=== PATIENT | female | born 1950 | race Caucasian/White ===

== ENCOUNTER 2022-03-17 14:13 | Outpatient (CLI) | payer OTHER, SELFPAY | END 2022-03-17 14:14 | disposition home or self-care (01) | LOC: NFLDREF 14:15 | PROVIDERS: PCP Family Medicine; Visit Provider Advanced Practice Midwife | DX: N89.8 Other specified noninflammatory disorders of vagina (principal) | CPT/HCPCS: 87086; 87186 ==

== ENCOUNTER 2022-06-01 15:23 | Outpatient (CLI) | payer OTHER, SELFPAY ==
--- NOTE | 2022-06-01 15:20 | CRLHL7_ITS ---
For Patients: As a result of the Century Cures Act, medical imaging exams and procedure reports are released immediately into your electronic medical record. You may view this report before your referring provider. If you have questions, please contact your health care provider. BILATERAL SCREENING MAMMOGRAM WITH COMPUTER-AIDED DETECTION AND TOMOSYNTHESIS TECHNIQUE: CC and MLO views were obtained. These mammographic images have been obtained using full-field digital technique. These mammographic images were interpreted with the benefit of computer-aided detection. Breast Tomosynthesis was used in this interpretation. COMPARISON FILM: 05/25/21, 05/01/20, 04/29/19. FINDINGS: The breasts are almost entirely fatty IMPRESSION: There is no radiographic evidence for malignancy. ASSESSMENT: BI-RADS Category 2: Benign RECOMMENDATION: Routine screening mammogram in 1 year. A lay language report of this examination will be provided to the patient. Bhupinder Dia M.D. Diagnostic Radiologist [email or web address] JANNETH/Dictated by: Bhupinder Dia MD @ 06/02/2022 8:59:00 AM (Electronically Signed)
== END 2022-06-01 15:24 | disposition home or self-care (01) ==
LOC: MAMMO 15:25
PROVIDERS: PCP Family Medicine; Visit Provider Surgery
DX: Z12.31 Encounter for screening mammogram for malignant neoplasm of breast (principal)
CPT/HCPCS: 77063; 77067

== ENCOUNTER 2022-07-29 15:05 | Outpatient (CLI) | payer OTHER, SELFPAY ==
[2022-07-29 12:55] LABS: Albumin* 3.9 g/dL (3.3-5.0)
[2022-07-29 12:56] LABS: Chloride* 104 mmol/L (96-114); Potassium* 4.4 mmol/L (3.6-5.1); Sodium* 140 mmol/L (135-149)
[2022-07-29 12:58] LABS: Cholesterol* 213 mg/dL (90-199); Creatinine* 0.8 mg/dL (0.5-1.5); Estimated Glomerular Filt Rate 79 ml/min
[2022-07-29 12:59] LABS: Alanine Aminotransferase* 25 U/L (4-35); Alkaline Phosphatase* 76 U/L (40-150); Aspartate Amino Transferase* 25 U/L (12-35); Bilirubin Total* 0.6 mg/dL (0.1-1.5); Blood Urea Nitrogen* 25 mg/dL (7-30); Calcium* 9.6 mg/dL (8.4-10.6); Carbon Dioxide* 28 mmol/L (20-32); Glucose* 95 mg/dL (60-115); Total Protein* 6.2 g/dL (6.0-8.3); Triglycerides* 135 mg/dL (40-149)
[2022-07-29 13:00] LABS: HDL Cholesterol* 66 mg/dL (>=50); LDL Cholesterol Calculated 120 mg/dL (<100)
== END 2022-07-29 15:06 | disposition home or self-care (01) ==
PROVIDERS: PCP Family Medicine; Visit Provider Family Medicine
DX: I10 Essential (primary) hypertension (principal); E03.9 Hypothyroidism, unspecified; E66.9 Obesity, unspecified; Z13.6 Encounter for screening for cardiovascular disorders
CPT/HCPCS: 80053; 80061; 84443

== ENCOUNTER 2022-08-06 15:35 | Emergency (ER) | payer OTHER, SELFPAY ==
[2022-08-06 15:48] VITALS: BP 157/92; PULSE 83; RESP 18; TEMP 36.2; O2SAT 98; BMI 46.1
--- NOTE | 2022-08-06 16:17 | ED_ITS ---
HPI - General Adult General Chief complaint: Cough Stated complaint: Cough, Pain under left ribcage Time Seen by Provider: 08/06/22 15:54 History of Present Illness HPI narrative: This 71-year-old female comes in reporting left lateral rib pain. She has had a cough for 6 weeks that is improving recently. She was diagnosed with COVID. She has now developed some pain that is reproducible with deep breath and with coughing in the left lateral ribs. She has been seen by her primary doctor and had labs and imaging studies done. A chest x-ray was done just a few days ago with negative results. She is currently taking Levaquin despite no x-ray findings of infiltrate. She has also been taking Robitussin AC which give some benefit for her persistent cough. She feels that her symptoms would improve if she could get a better control of her cough. Her cough is usually nonproduct arianne. She does not report any fevers or shortness of breath. Related Data Home Medications Medication Instructions Recorded Confirmed apixaban 5 mg tablet (Eliquis) 5 mg PO BID 03/17/22 08/06/22 calcium carbonate-vitamin tab PO 03/17/22 08/02/22 D2-minerals tablet cholecalciferol (vitamin D3) 125 125 mcg PO .4 times weekly 03/17/22 08/06/22 mcg (5,000 unit) capsule diclofenac sodium 1 % topical gel 4 g topical QID 03/17/22 08/06/22 levothyroxine 112 mcg capsule 112 mcg PO QDAY 03/17/22 08/06/22 meloxicam 15 mg tablet 15 mg PO QDAY 03/17/22 08/06/22 multivitamin with minerals 1 tab PO ONCE 03/17/22 08/06/22 (Multiple Vitamin-Minerals tablet) omeprazole 20 mg capsule,delayed 20 mg PO QDAY 03/17/22 08/06/22 release potassium chloride 10 mEq 10 meq PO BID 03/17/22 08/06/22 tablet,extended release gabapentin 300 mg capsule 300 mg PO QHS 08/06/22 08/06/22 Previous Rx's Medication Instructions Recorded furosemide 40 mg tablet 40 mg PO QAM #90 tabs 04/19/22 lisinopril 5 mg tablet 5 mg PO QDAY #90 tabs 04/19/22 tramadol 50 mg tablet 50 mg PO QDAY PRN Pain #60 tabs 09/13/22 codeine 10 mg-guaifenesin 200 mg/5 5 - 10 ml PO Q6H PRN cough #473 mL 08/02/22 mL oral liquid levofloxacin 500 mg tablet 500 mg PO QDAY #10 tabs 08/02/22 acetaminophen 300 mg-codeine 30 mg 1 tab PO Q6H PRN pain #30 tabs 08/06/22 tablet albuterol sulfate 90 mcg/actuation 2 puff inhalation Q4-6H PRN 08/06/22 aerosol inhaler (Proventil HFA) shortness of breath or wheezing #8.5 grams Allergies Allergy/AdvReac Type Severity Reaction Status Date / Time amoxicillin Allergy Intermediate Hives Verified 08/06/22 15:51 Penicillins Allergy Intermediate Hives Verified 08/06/22 15:51 thimerosal Allergy Verified 08/06/22 15:51 Review of Systems Status of ROS: Reports: 10 or more systems reviewed and unremarkable except as noted in History and below Narrative: Constitutional: No fevers, no weight gain or loss. Eyes: No discharge. No vision changes. HENT: No congestion, no sore throat, no ear pain. Cardiovascular: No chest pain, no palpitations. Respiratory: No shortness of breath, no wheezes. Persistent dry cough. Gastrointestinal: No abdominal pain, no vomiting, no diarrhea. Genitourinary: No dysuria, no hematuria. Musculoskeletal: Normal range of motion. Left lateral rib pain that is reprod uced with deep breathing and with coughing. Skin: No rashes, no pruritis. Neurological: No dizziness, weakness, sensory change, speech change. Endo/Heme/Allergies: No bruising or bleeding. No polydipsia. Pysch: no suicidality, no anxiety, no insomnia. All other systems reviewed and are negative. PFSH PFSH Surgical History History of Status post appendectomy Status post hernia repair Status post hysterectomy with oophorectomy Status post left breast lumpectomy Status post total replacement of hip Social History Smoking Status: Never smoker Exam Narrative: Exam Narrative: Constitutional: Well-developed, well-nourished, no acute distress. HEENT: Normocephalic, atraumatic. Neck: Normal range of motion. Nontender. Supple. Heart: Regular. No murmurs. Normal rate. Intact distal pulses. Lungs: Clear to auscultation. No wheezes, rhonchi, or rales. Chest: Distinct pain is reproduced when palpating along the left lateral ribs. Abdomen: Normal bowel sounds. Nontender. No rebound tenderness. Genitalia: Deferred. Back: No midline tenderness. Normal range of motion. Extremities: Normal range of motion. No injury. Skin: Intact. No rash. Warm. No erythema or pallor. Neurologic: No altered sensation. No weakness. Alert and oriented. Psychiatric: No suicidality. No anxiety or depression. No insomnia. Nursing notes and vitals signs are reviewed. Const: Vital Signs, click to edit/add: Vital Signs - 24 hr 08/06/22 15:48 Temperature 97.1 F L Pulse Rate [Pulse Oximeter] 83 Respiratory Rate 18 Blood Pressure [Ri ght Forearm] 157/92 H Pulse Oximetry 98 Oxygen Delivery Me thod Room Air Course Vital Signs Vital signs: Initial Vital Signs Temperature 97.1 F L 08/06/22 15:48 Temperature Source Temporal Artery Scan 08/06/22 15:48 Pulse Rate 83 08/06/22 15:48 Respiratory Rate 18 08/06/22 15:48 Blood Pressure 157/92 H 08/06/22 15:48 Blood Pressure Mean 113 08/06/22 15:48 Blood Pressure Position Sitting 08/06/22 15:48 Pulse Oximetry 98 08/06/22 15:48 Oxygen Delivery Method 08/06/22 15:48 Vital Signs Temperature 97.1 F L 08/06/22 15:48 Pulse Rate 83 08/06/22 15:48 Respiratory Rate 18 08/06/22 15:48 Blood Pressure 157/92 H 08/06/22 15:48 Pulse Oximetry 98 08/06/22 15:48 Oxygen Delivery Method 08/06/22 15:48 Temperature 97.1 F L 08/06/22 15:48 Pulse Rate 83 08/06/22 15:48 Respiratory Rate 18 08/06/22 15:48 Blood Pressure 157/92 H 08/06/22 15:48 Pulse Oximetry 98 08/06/22 15:48 Oxygen Delivery Method 08/06/22 15:48 Medical Decision Making MDM Narrative Medical decision making narrative: This patient comes in with reproducible left lateral rib pain suggesting chest wall pain. Her vital signs and exam are reassuring otherwise. She is currently taking Levaquin and Robitussin AC. I did discuss lab and imaging options but these were reviewed in her previous visit and declined for repetitious studies today. She did receive a prescription for Toradol, Tylenol 3, and albuterol inhaler. Discharge Plan Discharge Clinical Impression: Acute chest wall pain, Cough Patient Disposition: Home, Self-Care Condition: Stable Additional Instructions: Take medication as prescribed. Follow up with MD or return if worsening. Prescriptions: New acetaminophen-codeine 300-30 mg tablet 1 tab PO Q6H PRN (Reason: pain) Qty: 30 0RF albuterol sulfate [Proventil HFA] 90 mcg/actuation HFA aerosol inhaler 2 puff inhalation Q4-6H PRN (Reason: shortness of breath or wheezing) Qty: 8.5 0RF No Action codeine-guaifenesin 10-200 mg/5 mL liquid 5 - 10 ml PO Q6H PRN (Reason: cough) Qty: 473 0RF levofloxacin 500 mg tablet 500 mg PO QDAY Qty: 10 0RF cholecalciferol (vitamin D3) 125 mcg (5,000 unit) capsule 125 mcg PO .4 times weekly Multiple Vitamin-Minerals Tablet 1 tab PO ONCE potassium chloride 10 mEq tablet extended release 10 meq PO BID levothyroxine 112 mcg capsule 112 mcg PO QDAY meloxicam 15 mg tablet 15 mg PO QDAY omeprazole 20 mg capsule,delayed release(DR/EC) 20 mg PO QDAY diclofenac sodium 1 % gel 4 g topical QID Rx Instructions: apply to single knee, ankle, foot; for foot includes sole/toes/top of foot calcium carb-vit D2-minerals Tablet PO Eliquis 5 mg tablet 5 mg PO BID gabapentin 300 mg capsule 300 mg PO QHS lisinopril 5 mg tablet 5 mg PO QDAY Qty: 90 0RF furosemide 40 mg tablet 40 mg PO QAM Qty: 90 0RF tramadol 50 mg tablet 50 mg PO QDAY PRN (Reason: Pain) Qty: 60 0RF Follow Up/Referrals: Ela Enrique MD [Primary Care Provider] - Stand Alone Forms: [employer] Info Instructions
[2022-08-06 16:33] VITALS: BP 124/99; PULSE 76; O2SAT 94
== END 2022-08-06 16:43 | disposition home or self-care (01) ==
LOC: ED 16:31
PROVIDERS: Emergency Provider Emergency Medicine Emergency Medical Services; PCP Family Medicine
DX: R07.81 Pleurodynia (principal); R05.9 Cough, unspecified
CPT/HCPCS: 99282; 99283; 99284

== ENCOUNTER 2022-08-07 20:00 | Emergency (ER) | payer OTHER, SELFPAY ==
[2022-08-07 20:56] VITALS: BP 128/71; PULSE 76; RESP 18; TEMP 36.7; O2SAT 99; BMI 46.1
--- NOTE | 2022-08-07 21:06 | CRLHL7_ITS ---
For Patients: As a result of the Century Cures Act, medical imaging exams and procedure reports are released immediately into your electronic medical record. You may view this report before your referring provider. If you have questions, please contact your health care provider. INDICATION: Chest pain. PE protocol. Assess for rib fractures on the left side.. TECHNIQUE: CT chest PE was acquired with 45 cc Isovue 370 IV contrast. Very poor IV access. 45 cc was best attempt. Incomplete injection per food service technician. COMPARISON: None. FINDINGS: Heart and vasculature: Contrast opacification of the pulmonary arterial tree is inadequate. Nondiagnostic study. Unable to assess for pulmonary embolism.. Heart size is normal. Thoracic aorta is normal in caliber.Main pulmonary artery is mildly dilated measuring up to 31 millimeters in diameter. Lungs and pleura: No suspicious nodules or infiltrates. No pleural effusions, pleural thickening, or pneumothorax. Lymph nodes/mediastinum: No mediastinal, hilar, or axillary adenopathy. Chest wall: No masses. Upper abdomen: No acute or significant findings. Bones: Left lateral 9th rib fracture (5/164), otherwise unremarkable for age. Other old healed fractures are noted. IMPRESSION: Nondiagnostic study for pulmonary embolism due to inadequate opacification of the pulmonary artery. Left lateral 9th rib fracture. Otherwise, no acute cardiopulmonary process identified. Please note that all CT scans at this facility use dose modulation, iterative reconstruction, and/or weight-based dosing when appropriate to reduce radiation dose to as low as reasonably achievable. Dictated by Елена Rordiguez MD @ 08/07/2022 11:52:12 PM (Electronically Signed)
--- NOTE | 2022-08-07 21:39 | ED_ITS ---
HPI - General Adult General Chief complaint: Rib Pain Stated complaint: Left rib pain Time Seen by Provider: 08/07/22 21:04 History of Present Illness HPI narrative: Pt is a 71 year old woman who was here yesterday with a complaint of left sided chest pain. The pain localizes to the mid axillary line in the lower chest wall. Pt was treated and released with symptomatic treatment yesterday but returns stating that the pain is more severe. No orthopnea, PND, nausea or vomiting. No fever or chills. No recent trauma. Pt states the area localizes to the lower ribs and does not radiate. She has no cough or bruising. Pt states the pain has been present for a few days and seems to be worsening. No other associated symptoms. Pain medications are not helping at home. Related Data Home Medications Medication Instructions Recorded Confirmed apixaban 5 mg tablet (Eliquis) 5 mg PO BID 03/17/22 08/06/22 calcium carbonate-vitamin tab PO 03/17/22 08/02/22 D2-minerals tablet cholecalciferol (vitamin D3) 125 125 mcg PO .4 times weekly 03/17/22 08/06/22 mcg (5,000 unit) capsule diclofenac sodium 1 % topical gel 4 g topical QID 03/17/22 08/06/22 levothyroxine 112 mcg capsule 112 mcg PO QDAY 03/17/22 08/06/22 meloxicam 15 mg tablet 15 mg PO QDAY 03/17/22 08/06/22 multivitamin with minerals 1 tab PO ONCE 03/17/22 08/06/22 (Multiple Vitamin-Minerals tablet) omeprazole 20 mg capsule,delayed 20 mg PO QDAY 03/17/22 08/06/22 release potassium chloride 10 mEq 10 meq PO BID 03/17/22 08/06/22 tablet,extended release gabapentin 300 mg capsule 300 mg PO QHS 08/06/22 08/06/22 Previous Rx's Medication Instructions Recorded furosemide 40 mg tablet 40 mg PO QAM #90 tabs 04/19/22 lisinopril 5 mg tablet 5 mg PO QDAY #90 tabs 04/19/22 tramadol 50 mg tablet 50 mg PO QDAY PRN Pain #60 tabs 05/31/22 codeine 10 mg-guaifenesin 200 mg/5 5 - 10 ml PO Q6H PRN cough #473 mL 08/02/22 mL oral liquid levofloxacin 500 mg tablet 500 mg PO QDAY #10 tabs 08/02/22 acetaminophen 300 mg-codeine 30 mg 1 tab PO Q6H PRN pain #30 tabs 08/06/22 tablet albuterol sulfate 90 mcg/actuation 2 puff inhalation Q4-6H PRN 08/06/22 aerosol inhaler (Proventil HFA) shortness of breath or wheezing #8.5 grams Allergies Allergy/AdvReac Type Severity Reaction Status Date / Time amoxicillin Allergy Intermediate Hives Verified 08/07/22 20:59 Penicillins Allergy Intermediate Hives Verified 08/07/22 20:59 thimerosal Allergy Verified 08/07/22 20:59 Review of Systems Status of ROS: Reports: 10 or more systems reviewed and unremarkable except as noted in History and below [facility] Medical History (Updated 08/08/22 @ 00:00 by Chris Wilhelm MD) Acute chest wall pain Atrial fibrillation COVID GERD (gastroesophageal reflux disease) Hypertension Hypothyroidism Obesity Obstructive sleep apnea on CPAP Ovarian cancer Spondylolisthesis of lumbar region Surgical History History of Status post appendectomy Status post hernia repair Status post hysterectomy with oophorectomy Status post left breast lumpectomy Status post total replacement of hip Social History Smoking Status: Never smoker How often do you have a drink containing alcohol: monthly or less How often do you have six or more drinks on one occasion: Never AUDIT-C Alcohol total score: 1 Non-prescribed substance use: denies use Exam Narrative: Exam Narrative: EXAM GENERAL: Patient appears to be moderatlely uncomfortable. EYES: No scleral icterus. THYROID: no thyroid nodules or thyromegaly. LYMPH: No supraclavicular or cervical lymphadenopathy. SKIN: Visible skin seen during exam normal or with benign process only. EXT: No dependent lower extremity pedal edema. HEART: Regular rate and rhythm with no murmurs, rubs, or gallops. Chest exam shows tenderness in the lateral left chest. LUNGS: Clear to auscultation bilaterally with no crackles or wheezes. ABD: Soft, non tender, non distended. PSYCH: Good eye contact, speech is not pressured. Const: Vital Signs, click to edit/add: Vital Signs - 24 hr 08/07/22 20:56 Temperature 98.0 F Pulse Rate [Right Pulse Oximeter] 76 Respiratory Rate 18 Blood Pressure [Le ft Upper Arm] 128/71 Pulse Oximetry 99 Oxygen Delivery Me thod Room Air Course Course Hospital Course: Pt seen and examined. CT chest, troponin, EKG, CBC, BMP ordered. Reevaluation(s) Reevaluation #1: Labs reassuring. CT nondiagnostic for PE but does show a 9th rib fracture on the left. Time: 23:54 Vital Signs Vital signs: Initial Vital Signs Temperature 98.0 F 08/07/22 20:56 Temperature Source Temporal Artery Scan 08/07/22 20:56 Pulse Rate 76 08/07/22 20:56 Respiratory Rate 18 08/07/22 20:56 Blood Pressure 128/71 08/07/22 20:56 Blood Pressure Mean 90 08/07/22 20:56 Blood Pressure Position Sitting 08/07/22 20:56 Pulse Oximetry 99 08/07/22 20:56 Oxygen Delivery Method 08/07/22 20:56 Vital Signs Temperature 98.0 F 08/07/22 20:56 Pulse Rate 76 08/07/22 20:56 Respiratory Rate 18 08/07/22 20:56 Blood Pressure 128/71 08/07/22 20:56 Pulse Oximetry 99 08/07/22 20:56 Oxygen Delivery Method 08/07/22 20:56 Temperature 98.0 F 08/07/22 20:56 Pulse Rate 76 08/07/22 20:56 Respiratory Rate 18 08/07/22 20:56 Blood Pressure 128/71 08/07/22 20:56 Pulse Oximetry 99 08/07/22 20:56 Oxygen Delivery Method 08/07/22 20:56 Medical Decision Making MDM Narrative Medical decision making narrative: Pt is a 71 year old woman who comes in for the second time in 2 days for pain in the lateral left chest wall. Pt's evaluation shows a rib fracture. Non diagn ostic study for PE not repeated as pt is on anticoagulation and has a cause for her pain. Will treat with Ice, percocet and rest. PCP follow up. Differential Diagnosis Differential Diagnosis: PE, Pneumonia, Rib Fracture, Muscle Pain, Pleurasy, DE Lab Data Labs: Lab Results 08/07/22 08/07/22 Range/Units 22:27 22:27 WBC 6.95 (4.50-11.00) K/uL RBC 4.28 (4.00-5.20) m/uL Hgb 12.9 (12.0-16.0) gm/dL Hct 39.4 (33.0-51.0) % MCV 92 (80-100) fL MCH 30 (26-34) pg MCHC 33 (32-36) gm/dL RDW Coeff of Kt 13.4 (11.5-15.5) % Plt Count 283 (140-440) K/uL Neut % (Auto) 61.4 (42.0-72.0) % Lymph % (Auto) 27.1 (20-44) % [place] % (Auto) 7.3 (0.0-11.0) % Eos % (Auto) 3.3 (0.0-7.0) % Baso % (Auto) 0.3 (0.0-3.0) % Neut # (Auto) 4.27 (1.7-7.0) K/uL Lymph # (Auto) 1.88 (0.90-2.90) K/uL [place] # (Auto) 0.50 (0.00-0.90) K/UL Eos # (Auto) 0.23 (0.00-0.50) K/uL Baso # (Auto) 0.02 (0.00-0.30) K/uL Abs Immat Gran (auto) 0.04 (0.00-0.30) K/uL Imm/Tot Granulo (auto) 0.6 % Sodium 141 (135-149) mmol/L Potassium 4.1 (3.6-5.1) mmol/L Chloride 105 (96-114) mmol/L Carbon Dioxide 30 (20-32) mmol/L BUN 23 (7-30) mg/dL Creatinine 1.0 (0.5-1.5) mg/dL Estimated Creat Clear 43.30 Estimated GFR 61 ml/min Glucose 114 (60-115) mg/dL Calcium 9.2 (8.4-10.6) mg/dL Troponin I < 0.01 L (0.01-0.04) ng/mL Discharge Plan Discharge Clinical Impression: Fracture of rib Condition: Stable Instructions: Rib Fracture (ED) Additional Instructions: Ice Percocet Primary Care follow up. Activity Level: No Restrictions Discharge Diet: Regular Prescriptions: No Action codeine-guaifenesin 10-200 mg/5 mL liquid 5 - 10 ml PO Q6H PRN (Reason: cough) Qty: 473 0RF levofloxacin 500 mg tablet 500 mg PO QDAY Qty: 10 0RF cholecalciferol (vitamin D3) 125 mcg (5,000 unit) capsule 125 mcg PO .4 times weekly Multiple Vitamin-Minerals Tablet 1 tab PO ONCE potassium chloride 10 mEq tablet extended release 10 meq PO BID levothyroxine 112 mcg capsule 112 mcg PO QDAY meloxicam 15 mg tablet 15 mg PO QDAY omeprazole 20 mg capsule,delayed release(DR/EC) 20 mg PO QDAY diclofenac sodium 1 % gel 4 g topical QID Rx Instructions: apply to single knee, ankle, foot; for foot includes sole/toes/top of foot calcium carb-vit D2-minerals Tablet PO Eliquis 5 mg tablet 5 mg PO BID gabapentin 300 mg capsule 300 mg PO QHS acetaminophen-codeine 300-30 mg tablet 1 tab PO Q6H PRN (Reason: pain) Qty: 30 0RF albuterol sulfate [Proventil HFA] 90 mcg/actuation HFA aerosol inhaler 2 puff inhalation Q4-6H PRN (Reason: shortness of breath or wheezing) Qty: 8.5 0RF lisinopril 5 mg tablet 5 mg PO QDAY Qty: 90 0RF furosemide 40 mg tablet 40 mg PO QAM Qty: 90 0RF tramadol 50 mg tablet 50 mg PO QDAY PRN (Reason: Pain) Qty: 60 0RF Follow Up/Referrals: Ela Enrique MD [Primary Care Provider] - Stand Alone Forms: [employer] Info Instructions
[2022-08-07 22:27] VITALS: O2SAT 98
[2022-08-07 22:46] LABS: Chloride* 105 mmol/L (96-114)
[2022-08-07 22:47] LABS: Potassium* 4.1 mmol/L (3.6-5.1); Sodium* 141 mmol/L (135-149)
[2022-08-07 22:49] LABS: Estimated Glomerular Filt Rate 61 ml/min
[2022-08-07 22:50] LABS: Blood Urea Nitrogen* 23 mg/dL (7-30); Calcium* 9.2 mg/dL (8.4-10.6); Carbon Dioxide* 30 mmol/L (20-32); Glucose* 114 mg/dL (60-115)
[2022-08-07 22:57] LABS: Basophils Absolute Auto 0.02 K/uL (0.00-0.30); Basophils Percent Auto 0.3 % (0.0-3.0); Eosinophils Absolute Auto 0.23 K/uL (0.00-0.50); Eosinophils Percent Auto 3.3 % (0.0-7.0); Hematocrit 39.4 % (33.0-51.0); Hemoglobin* 12.9 gm/dL (12.0-16.0); Immature Granulocytes Abs Auto 0.04 K/uL (0.00-0.30); Immature Granulocytes Pct Auto 0.6 %; Lymphocytes Absolute Auto 1.88 K/uL (0.90-2.90); Lymphocytes Percent Auto 27.1 % (20-44); Mean Corpuscular HGB Conc 33 gm/dL (32-36); Mean Corpuscular Hemoglobin 30 pg (26-34); Mean Corpuscular Volume 92 fL (80-100); Monocytes Percent Auto 7.3 % (0.0-11.0); Neutrophils Absolute Auto 4.27 K/uL (1.7-7.0); Neutrophils Percent Auto 61.4 % (42.0-72.0); Platelet Count* 283 K/uL (140-440); RDW Coefficient of Variation % 13.4 % (11.5-15.5); Red Blood Count 4.28 m/uL (4.00-5.20); White Blood Count* 6.95 K/uL (4.50-11.00)
[2022-08-07 23:01] LABS: Slide Review Reflex No
[2022-08-07 23:02] LABS: Troponin I* < 0.01 ng/mL (0.01-0.04)
[2022-08-08 00:05] VITALS: BP 132/74; PULSE 81; RESP 18; TEMP 36.9; O2SAT 99
== END 2022-08-08 00:06 | disposition home or self-care (01) ==
PROVIDERS: Emergency Provider Internal Medicine; PCP Family Medicine
DX: S22.32XA Fracture of one rib, left side, initial encounter for closed fracture (principal); X58.XXXA Exposure to other specified factors, initial encounter; Y93.9 Activity, unspecified; Y92.9 Unspecified place or not applicable; Y99.9 Unspecified external cause status
CPT/HCPCS: 36415; 71260; 80048; 84484; 85025; 93005; 94761; 99283; 99284; Q9967

== ENCOUNTER 2023-04-05 11:13 | Outpatient (CLI) | payer OTHER, SELFPAY | END 2023-04-05 11:14 | disposition home or self-care (01) | LOC: NFLDREF 04-06 07:30 | PROVIDERS: PCP Family Medicine; Referring Provider Family Medicine | DX: R53.83 Other fatigue (principal); Z79.1 Long term (current) use of non-steroidal anti-inflammatories (NSAID); I10 Essential (primary) hypertension; M79.89 Other specified soft tissue disorders; Z79.899 Other long term (current) drug therapy | CPT/HCPCS: 80053 ==

== ENCOUNTER 2023-06-06 12:48 | Outpatient (CLI) | payer OTHER, SELFPAY ==
--- NOTE | 2023-06-06 13:00 | CRLHL7_ITS ---
For Patients: As a result of the Century Cures Act, medical imaging exams and procedure reports are released immediately into your electronic medical record. You may view this report before your referring provider. If you have questions, please contact your health care provider. BILATERAL SCREENING MAMMOGRAM WITH COMPUTER-AIDED DETECTION AND TOMOSYNTHESIS TECHNIQUE: CC and MLO views were obtained. These mammographic images have been obtained using full-field digital technique. These mammographic images were interpreted with the benefit of computer-aided detection. Breast Tomosynthesis was used in this interpretation. COMPARISON FILM: 06/01/22, 05/25/21, 05/01/20. FINDINGS: The breasts are almost entirely fatty IMPRESSION: There is no radiographic evidence for malignancy. ASSESSMENT: BI-RADS Category 1: Negative RECOMMENDATION: Routine screening mammogram in 1 year. A lay language report of this examination will be provided to the patient. Bhupinder Dia M.D. Diagnostic Radiologist [email or web address] JANNETH/Dictated by: Bhupinder Dia MD @ 06/07/2023 11:38:00 AM (Electronically Signed)
== END 2023-06-06 12:49 | disposition home or self-care (01) ==
LOC: MAMMO 12:49
PROVIDERS: PCP Family Medicine; Visit Provider Physician Assistant
DX: Z12.31 Encounter for screening mammogram for malignant neoplasm of breast (principal)
CPT/HCPCS: 77063; 77067

== ENCOUNTER 2023-08-11 08:31 | Outpatient (CLI) | payer OTHER, SELFPAY ==
--- NOTE | 2023-08-11 08:45 | CRLHL7_ITS ---
For Patients: As a result of the Cures Act, medical imaging exams and procedure reports are released immediately into your electronic medical record. You may view this report before your referring provider. If you have questions, please contact your health care provider. DIGITAL DIAGNSOTIC RIGHT MAMMOGRAM USING TOMOSYNTHESIS AND COMPUTER-AIDED DETECTION RIGHT BREAST ULTRASOUND CLINICAL HISTORY: RIGHT breast lump. COMPARISON: 06/06/2023, 06/01/2022, 05/25/2021. TECHNIQUE: Digital RIGHT mammogram in two projections. Tomosynthesis and CAD utilized. Real-time ultrasound imaging of RIGHT breast with imaging documentation. BREAST COMPOSITION: There are areas of scattered fibroglandular density. FINDINGS: 3D CC/MLO RIGHT breast mammogram images submitted. No suspicious masses or architectural distortion. No adenopathy or suspicious calcifications. Targeted RIGHT breast ultrasound performed in the area of concern at 5 o`clock 8 cm from the nipple. Circumscribed near isoechoic/slightly hyperechoic nodule is present just beneath the skin measuring 0.9 x 2.8 x 2.9 cm. No abnormal vascularity. IMPRESSION: Benign lipoma RIGHT breast 5 o`clock 8 cm from the nipple. No evidence of malignancy. RECOMMENDATIONS: Routine BILATERAL screening mammography. Results and recommendations discussed with the patient. BI-RADS Category 2: Benign A lay language report of this examination will be provided to the patient. Dictated by Bhupinder Dia MD @ 08/11/2023 9:36:45 AM j/Dictated by: Bhupinder Dia MD @ 08/11/2023 9:36:00 AM (Electronically Signed)
--- NOTE | 2023-08-11 09:15 | CRLHL7_ITS ---
For Patients: As a result of the Century Cures Act, medical imaging exams and procedure reports are released immediately into your electronic medical record. You may view this report before your referring provider. If you have questions, please contact your health care provider. PLEASE SEE DIGITAL DIAGNOTIC RIGHT MAMMOGRAM PERFORMED SAME DAY CRL:[email or web address] [email or web address]/Dictated by: Bhupinder Dia MD @ 08/11/2023 10:05:00 AM (Electronically Signed)
== END 2023-08-11 08:32 | disposition home or self-care (01) ==
PROVIDERS: PCP Family Medicine; Visit Provider Radiology Radiation Oncology
DX: N63.14 Unspecified lump in the right breast, lower inner quadrant (principal)
CPT/HCPCS: 76642; 77065; G0279

== ENCOUNTER 2023-10-06 11:00 | Outpatient (CLI) | payer OTHER, SELFPAY | END 2023-10-06 11:01 | disposition home or self-care (01) | LOC: NFLDREF 10-09 11:33 | PROVIDERS: PCP Family Medicine; Referring Provider Family Medicine; Visit Provider Family Medicine | DX: E03.9 Hypothyroidism, unspecified (principal); E78.5 Hyperlipidemia, unspecified; M85.80 Other specified disorders of bone density and structure, unspecified site; Z79.1 Long term (current) use of non-steroidal anti-inflammatories (NSAID); I10 Essential (primary) hypertension | CPT/HCPCS: 80053; 80061; 82306; 84443 ==

== ENCOUNTER 2023-11-08 13:21 | Outpatient (CLI) | payer OTHER, SELFPAY ==
--- OUTSIDE RECORDS SUMMARY | 2023-11-08 13:24 | XMS_ITS | Encounter Summary ---
Author Name Unknown Organization [facility] Address [address] [place] [id number] Care Team Providers Care Tire Design Engineer Name Role Phone Unavailable Primary Care Provider Unavailabl e Encounter Details Date Type Department Care Team (Late st Contact Info) Description 08/02/2023 Clinical Communication Department of Radiation Oncology in [place], [place] [address] [place] [id number] Alena Gutierrez M.D. [address] [place] [phone] Social History Tobacco Use Types Packs/Day Years Used Date Smoking Tobacco: Never Assessed Nutrition Answer Date Recorded Nutrition: EVOO Fat Source Unknown 11/16 Nutrition: Servings of Fruits/Vegetables per Day Not on file 11/16/2020 Dental Answer Date Recorded Dental: Regular Dentist Unknown 11/17/19 Sex and Gender Information Value Date Recorded Sex Assigned at Not on file Gender Identity Not on file Sexual Orientation Not on file documented as of this encounter Miscellaneous Notes * Telephone Encounter - Art Mcgowan - 08/02/2023 2:30 PM CST Patient called and stated that she is going to have a compressed mammogram and she had heard from afriend that they are very painful. Patient is wondering if she could have a prescription for percocet to help with the pain. Patient would like a call back. [phone] SOLUTION MANAGER CONSULTANT documented in this encounter Plan of Treatment Not on file documented as of this encounter Visit Diagnoses Not on filedocumented in this encounter
--- OUTSIDE RECORDS SUMMARY | 2023-11-08 13:24 | XMS_ITS | Clinical Summary ---
Author Name Unknown Organization [facility] Address [place], [place] [address] Care Team Providers Care Waterfront Director Name Role Phone Ela Enrique MD Primary Care Provider + Allergies Active Allergy Reactions Criticality Noted Date Comments Amoxicillin Hives 11/29/2006 Thimerosal Other - Describe In Comment Field 01/28/2008 Pt. states that when she used eye drops with this preservtive in, it felt like there was gravel in her eyes. Medications Medication Sig Dispensed Refills Start Date End Date Status MULTIVITAMIN CAP daily 0 Active CPAP Autotitration cpap 4-20cm of H2O, with accessories dx780.57 1 0 02/18/2008 Active omeprazole (PRILOSEC) 20 mg Delayed-Release capsule Take 1 capsule by mouth once daily before a meal. 0 11/08/2018 Active Calcium Cmb 2-D3-Min [id number] (CITRACAL + BONE DENSITY) 300-200-13.5 mg-unit-mg tab Take 1 tablet by mouth 2 times daily. 0 11/20/2019 Active meloxicam 15 mg tablet 0 09/30/2019 Active levothyroxine (SYNTHROID) 112 mcg tablet 0 07/15/2019 Active potassium chloride (K-DUR, KLOR-CON M10) 10 mEq tabletIndications: Encounter for monitoring diuretic therapy,Hypokalemi a,PAF (paroxysmal atrial fibrillation) (HC) Take 1 tablet by mouth on days that you take furosemide 90 tablet. 3 09/07/2020 Active flecainide (TAMBOCOR) 150 mg tabletIndications: PAF (paroxysmal atrial fibrillation) (HC),Encounter for monitoring diuretic therapy,Hypokalemi a Take 1 Tablet (150 mg) by mouth every 12 hours. 180 Tablet 0 07/14/2022 Active furosemide (LASIX) 40 mg tabletIndications: PAF (paroxysmal atrial fibrillation) (HC),Encounter for monitoring diuretic therapy,Hypokalemi a Take 1 tablet by mouth as needed for lower extremity edema 90 Tablet 0 07/14/2022 Active lisinopriL (PRINIVIL; ZESTRIL) 5 mg tabletIndications: HTN (hypertension) Take 1 Tablet (5 mg) by mouth once daily. 90 Tablet 0 07/14/2022 Active apixaban (ELIQUIS) 5 mg tabletIndications: Paroxysmal atrial fibrillation (HC) Take 1 Tablet (5 mg) by mouth two times daily. 180 Tablet 0 07/14/2022 Active Active Problems Problem Noted Date Diagnosed Date Atrial fibrillation 09/02/2018 Impaired fasting glucose 02/02/2010 Ulcer of lower limb, unspecified 02/01/2010 Superficial thrombophlebitis of leg 02/02/2009 Overview: Plan hematology evaluation when off coumadin Allergy to pollen 01/13/2009 Unspecified hypothyroidism 01/13/2009 ABNORMAL STRESS ECHOCARDIOGRAM 02/26/2008 MILD LEFT VENTRICULAR HYPERTROPHY 02/26/2008 SLEEP APNEA AHI-101 01/13/2008 02/18/2008 Knee joint replacement by other means 09/20/2007 Malignant neoplasm of ovary 11/29/2006 Osteoarthrosis, unspecified whether generalized or localized, unspecified site 11/29/2006 Overview: right knee Morbid obesity with BMI of 45.0-49.9, adult Resolved Problems Problem Noted Date Diagnosed Date Resolved Date half-way (current) use of anticoagulants 02/02/2009 10/12/2009 Overview: INR goal range 2.0-3.0. Per dr beasley evaluation, only needs coumadin for 6 months. Terri Cruz M.D. 05/22/2009 2:20 PM Unspecified asthma(493.90) 01/21/2008 0 06/16/2008 Immunizations Name Administration Dates Next Due Td (Age >=7 Years) 05/23/1997 Tdap 01/13/2009 Family History Medical History Relation Name Comments Cancer Father liver Other Father emphysema, also liver cancer Hyperlipidemia Mother Other Mother emphysema Psychiatric illness Mother Cancer-breast No Family History Cancer-colon No Family History Relation Name Status Comments Father Mother Social History Tobacco Use Types Packs/Day Years Used Date Smoking Tobacco: Never Smokeless Tobacco: Never Tobacco Cessation:Counseling Given: Yes Alcohol Use Standard Drinks/Week Comments Yes 0 (1 standard drink = 0.6 oz pur e alcohol) 1x/year if that Social Connections Answer Date Recorded Frequency of Communication with Friends and Fami ly Not on file 09/18/2021 Financial Resource Strain Answer Date R ecorded Difficulty of Paying Living Expenses Not on file 09/18/2021 Difficulty of Paying Living Expenses Not on file 09/18/2021 Sex and Gender Information Value Date Recorded Sex Assigned at Not on file Gender Identity Not on file Sexual Orientation Not on file Obstetrics History Para Term AB IAB SAB Ectopic Multiple Livin g Live Births 2 2 0 0 2 Date Outcome GA Total Labor Labor/2nd/3rd Weight Sex Delivery Anes PTL Kizzy A1 A5 Name Cl in Para Para Last Filed Vital Signs Vital Sign Reading Time Taken Comments Blood Pressure 142/86 01/19/2022 9:47 AM CDT Pulse 72 01/19/2022 9:47 AM CDT Temperature 36.4 ??C (97.5 ??F) 09/03/2018 10:[address] Respiratory Rate 16 09/22/2021 1:16 PM HEEL TOP LIFT SPLITTER Oxygen Saturation 96% 01/19/2022 9:47 AM CDT Inhaled Oxygen Concentration - - Weight 126.1 kg (278 lb) 09/07/2018 2:18 PM HEEL TOP LIFT SPLITTER Height 162.6 cm (5' 4) 01/20/2021 12:51 PM CDT Body Mass Index 47.72 09/03/2018 7:00 AM HEEL TOP LIFT SPLITTER Plan of Treatment Health Maintenance Due Date Last Done Comments Hepatitis C screening for age 18-79 11/24/1969 Colonoscopy through age 75 11/24/1996 Zoster (shingles) series for age 50+ (1 of 2) 11/24/2001 Mammogram for age 45-75 07/13/2011 07/13/20 10, 08/21/2008, 08/07/2007 Lipids for age 45-75 06/11/2015 06/11/2010, 05/12/20 08 DEXA/DXA scan for age 65+ 11/24/2016 Medicare Wellness for age 65+ 11/24/2016 Pneumococcal series for age 65+ (1 of 1 - PCV) 11/24/2016 Depression screening for age 12+ 11/22/2017 11/23/19 17 BMI (ht and wt on same day) for age 18+ 03/23/2018 03/23/2017, 02/02/2017, 12/22/2016 Tetanus booster 01/13/2019 01/13/2009, 05/23/1997 COVID-19 vaccine series ( season) 2023 07/23/2021, 12/29/2020, 12/08/2020 Influenza for age 65+ 05/19/2023 Tdap Completed 01/13/2009 Advance Directives Latest Code Status on File Code Status Date Activated Date Inactivated Comments Full Code 09/03/2018 7:27 AM 09/03/2018 5:02 PM Care Teams Waterfront Director Relationship Specialty Start Date End Date Ela Enrique MD [address] [place] [id number] PCP - General Family Practice 03/23/17
--- OUTSIDE RECORDS SUMMARY | 2023-11-08 13:24 | XMS_ITS | Encounter Summary ---
Author Name Unknown Organization [facility] Address [address] [place] [address] Care Team Providers Care Automation Engineering Technician Name Role Phone Unavailable Primary Care Provider Unavailabl e Encounter Details Date Type Department Care Team (Late st Contact Info) Description 08/04/2023 Orders Only Department of Radiation Oncology in [place], [place] [address] [place] [phone] Alena Gutierrez M.D. [address] [place] [address] Social History Tobacco Use Types Packs/Day Years [...] on file documented as of this encounter Plan of Treatment Not on file documented as of this encounter Visit Diagnoses Not on filedocumented in this encounter
--- OUTSIDE RECORDS SUMMARY | 2023-11-08 13:24 | XMS_ITS | Encounter Summary ---
Author Name Unknown Organization [facility] Address [address] [place] [address] Care Team Providers Care In Flight Refueling Manager Name Role Phone Unavailable Primary Care Provider Unavailabl e Reason for Referral * Outpatient (Routine) - Authorized Specialty Diagnoses / Procedures Referred By Darnell roca Referred To Contact General Surgery Diagnoses Lump In The Right Breast Lower Inner Quadrant Alena Gutierrez M.D. [address] [place] [phone] [facility] Region Referral ID Status Reason Start Date Expiration Date Visits Requested Visits Authorized [id number] Authorized Specialty Services Required 3 08/01/2024 1 1 Scheduling Instructions Schedule with Dr. Rubi White after imaging at [facility] (spoke with Dr. White). TABLE II FARMWORKER * Outpatient (Routine) - Closed Specialty Diagnoses / Procedures Referred By Contac t Referred To Contact Radiation Oncology Alena Gutierrez M.D. [address] [place] [address] [facility] Region Referral ID Status Reason Start Date Expiration Date Visits Re quested Visits Authorized [id number] Closed 06/09/2023 06/08/2026 1 1 TABLE II FARMWORKER Reason for Visit * Outpatient (Routine) - Closed Specialty Diagnoses / Procedures Referred By Contac t Referred To Contact Radiation Oncology Alena Gutierrez M.D. [address] [place] [address] [facility] Region Referral ID Status Reason Start Date Expiration Date Visits Re quested Visits Authorized [id number] Closed 06/09/2023 06/08/2026 1 1 Encounter Details Date Type Department Care Team (Latest Contact Info) Description 08/02/2023 10:38 AM VEGETABLE II FARMWORKER - 08/02/2023 3:21 PM VEGETABLE II FARMWORKER Hospital Encounter Department of Radiation Oncology in [place], [place] [address] [place] [address] Alena Gutierrez M.D. [address] [place] [phone] Lump In Axillary Tail Of The Right Breast (Primary Dx); Lump In The Right Breast Lower Inner Quadrant Social History Tobacco Use Types Packs/Day Years Used Date Smoking Tobacco: Never Assessed Nutrition Answer Date Recorded Nutrition: EVOO Fat Source Unknown 11/16 Nutrition: Servings of Fruits/Vegetables per Day Not on file 11/16/2020 Dental Answer Date Recorded Dental: Regular Dentist Unknown 11/17/19 21 Sex and Gender Information Value Date Recorded Sex Assigned at Not on file Gender Identity Not on file Sexual Orientation Not on file documented as of this encounter Last Filed Vital Signs Vital Sign Reading Time Taken Comments Blood Pressure 126/88 08/02/2023 10:54 AM [facility] Pulse - - Temperature - - Respiratory Rate - - Oxygen Saturation - - Inhaled Oxygen Concentration - - Weight - - Height - - Body Mass Index - - documented in this encounter Medications at Time of Discharge Medication Sig Dispensed Refills Start Date End Date calcium crb,dtc-N2-nlo25-geni s 300-200-13.5 mg-unit-mg tablet Take 1 tablet by mouth. 0 cholecalciferol (VITAMIN D3) 50 mcg (2,000 Unit) tablet Take 2,000 Units by mouth daily. 0 flecainide (TAMBOCOR) 150 mg tablet Take 150 mg by mouth. 0 03/22/2019 furosemide (LASIX) 40 mg tablet Take 40 mg by mouth. 0 09/07/2018 levothyroxine (SYNTHROID, LEVOTHROID) 112 mcg tablet 0 07/15/2019 levothyroxine (SYNTHROID, LEVOTHROID) 125 mcg tablet Take 125 mcg by mouth. 0 07/17/2018 lisinopriL (PRINIVIL,ZESTRIL) 5 mg tablet Take 5 mg by mouth. Taking 15 mg qd 0 09/22/2021 losartan (COZAAR) 50 mg tablet Take 50 mg by mouth daily. 0 meloxicam (MOBIC) 15 mg tablet 0 03/22/2019 miscellaneous medical supply [facility] Autotitration cpap 4-20cm of H2O, with accessories dx780.57 0 02/18/2008 multivitamin capsule Take by mouth. 0 omeprazole (PriLOSEC) [address] capsule Take 20 mg by mouth. 0 11/08/2018 oxybutynin (DITROPAN) 5 mg tablet Take 5 mg by mouth 2 (two) times a day. 0 potassium chloride (KLOR-CON M) 10 mEq ER tablet Take 10 mEq by mouth. 0 09/07/2018 sertraline (ZOLOFT) 50 mg tablet 0 04/23/2020 warfarin (COUMADIN) 2.5 mg tablet 0 03/19/2019 oxyCODONE-acetaminoph en (Percocet) 7.5-325 mg per tabletIndications:Acu te Pain Take 2 tablets by mouth once for 1 dose Indication: Acute Pain. 2 tablet 0 08/11/2023 08/04/2023 documented as of this encounter Progress Notes * Alena Gutierrez M.D. - 08/02/2023 11:00 AM CST RADIATION ONCOLOGY FOLLOW-UP NOTE SUBJECTIVE REQUESTING PROVIDER Established patient DIAGNOSIS 1. Left breast DCIS, pTis pN0 (sn) cM0, ER positive, s/p lumpectomy and SLNBx and adjuvant radiation therapy, June 2019 CHIEF COMPLAINT/REASON FOR VISIT Mrs. 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 She received 4005 cGy in 15 fractions to the left breast which she completed on July 09, 2019. Patient is being seen today for a focused follow-up visit with concerns for a new left breast nodule that she palpated on SBE. Her oncologic history is as follows: 1. April 29, 2019: Bilateral screening mammogram demonstrated a cluster of microcalcifications with pleomorphism located within the lower inner left breast, 5 cm from the nipple. 6-10 calcificationsappeared to be present. No associated mass. Normal right breast mammogram. No adenopathy. BI-RADS 0. 2. April 29, 2019: DEXA scan demonstrated T-score of -1.9 in the left femur neck and -1.1 in the total left femur demonstrating osteopenia. 3. May 06, 2019: Diagnostic mammogram of the left breast demonstrated a heterogeneous cluster ofmicrocalcifications in the inferior medial left breast. No associated mass. BI-RADS 4B. 4. May 10, 2019: Stereotactic guided core biopsy of the left breast at the 3 o'clock position, 6cm from the nipple was performed. Pathology demonstrated ductal carcinoma in situ, comedo and micropapillary subtypes, nuclear grade 3, ER positive. Calcifications and necrosis were associated with DCIS. Negative for invasive tumor. 5. May 14, 2019: General surgery consultation with Dr. John Gillis who recommended proceeding with a bilateral breast MRI and genetic testing. Plan to proceed with wire localized lumpectomy and sentinel lymph node biopsy if there are no other areas that need attention. 6. May 15, 2019: Bilateral breast MRI demonstrated artifact the biopsy clip present at the 3 o'clock position, 5 cm from the nipple of the left breast. There was surrounding increased T2 signal related to post biopsy change. There was no associated abnormal enhancement the site of the recent biopsy or elsewhere within the breast. There was no suspicious enhancement within the right breast. Thevisualized axillary lymph nodes were unremarkable. BI-RADS 6. 7. May 23, 2019: Left breast wire localized lumpectomy and left breast sentinel lymph node excision was performed by Dr. Gillis. Pathology of the left breast demonstrated ductal carcinoma in situ, nuclear grade 3, micro papillary type with necrosis. DCIS measured 1 cm and was located 0.4 cm from the lateral margin. Atypical lobular hyperplasia was present. Negative for invasive malignancy. Estrogen receptor positive (91-100%). Negative for malignancy in two lymph nodes (0/2). pTis (DCIS) pN0 (sn). 8. June 01, 2019: [facility] diagnostic testing result demonstrated one pathogenic variant identified in MUTYH. Remainder of the 47 gene cancer panel was negative including BRCA1 and BRCA2. 9. June 11, 2019: Medical Oncology consultation with Dr. Dali Michel who reviewed the overall management plan of surgery followed by radiation followed by hormonal therapy for estrogen receptor positive DCIS. The patient was unsure about pursuing any form of treatment. 10. June 19 through July 09, 2019: She received whole breast radiation therapy with 4005 cGy in 15 fractions. 11. July 2019: Patient initiated Arimidex under the care of Dr. Michel. Patient experienced extreme hot flashes and insomnia and discontinued after 1 week. 12. August 2019: Dr. Michel prescribed Tamoxifen for patient. 13. May 01, 2020: Mammogram negative. 14. May 25, 2021: Mammogram negative. 15. June 01, 2022: Mammogram is negative for malignancy. 16. June 06, 2022: Mammogram is negative for malignancy. INTERVAL HISTORY: Since I last saw Mrs. Claribel Juarez she reports feeling a new right medial breast mass about 1 week ago. She states that she was itching the area and felt it. She is not sure how long it has been there. It does not hurt. She notes no new lumps or masses. She has no new back or bone pain. She is intentionally losing weight for a hoped future knee surgery. She states she is down50 lbs. OBJECTIVE BP 126/88 (BP Location: Right arm, Patient Position: Sitting, Cuff Size: Regular) General: Mrs. Claribel Juarez is a well-developed, well-nourished woman. she is seated in the examination room in no acute distress. ECO - asymptomatic. Cardiovascular: Heat rhythm with regular rate. Lungs: Lung rodríguez are clear to auscultation throughout. No adventitious lung sounds. Musculoskeletal: No pain to palpation along the spine. Breasts: Her breasts are symmetric. She does have a 1.5cm soft to firm nodule in the medial inferior aspect of her right breast. It is mobile. No skin erythema over the area. No other masses or nipple discharge are noted in either breast. DIAGNOSTICS: I have reviewed the available imaging, operative and pathology reports as described above and reviewed in the EMR. ASSESSMENT / PLAN #1 Left breast DCIS, pTis pN0 (sn) cM0, ER positive, s/p lumpectomy and SLNBx and adjuvant radiation therapy, June 2019 #2 New right inferior medial quadrant breast mass I reviewed the above findings with Mrs. Juarez. I do agree that there is a breast mass in her inferior medial quadrant of her right breast. I would recommend a diagnostic mammogram and ultrasound of this area. Dr. Gillis has retired. I would like to refer her to Dr. Rubi White. Mrs. Juarez gave me permission to talk to her and run her case by her. I subsequently spoke with Dr. White and she agrees with our plan. Hopefully this is a benign finding, but it certainly needs evaluation. We did discuss referral to [place] for possible excision and brachytherapy should it be malignant. She did not think this was a better option than external beam radiotherapy. Hopefully, again we don't need this, but I thought I should mention other treatment options to her given how difficult external beam radiotherapy was for her last time. Mrs. Claribel Juarez knows to contact us at any point should any questions or concerns arise. EDUCATION Ready to learn, no apparent learning barriers were identified; learning preferences include listening. Explained diagnosis and treatment plan; patient expressed understanding of the content. I personally spent 30 minutes in care of the patient today. Time includes both non face to face andface to face patient care. Signed by: Alena Gutierrez M.D. 08/02/2023 3:20 PM VEGETABLE II FARMWORKER Radiation Oncology [facility] [address] [place] [address] TABLE II FARMWORKER documented in this encounter Miscellaneous Notes * Addendum Note - Alena Gutierrez M.D. - 08/02/2023 11:00 AM CSTEncounter addended by: Alena Gutierrez M.D. on: 08/03/2023 10:19 AM Actions taken: Actions taken from a BestPractice Advisory, Order list changed TABLE II FARMWORKER documented in this encounter Plan of Treatment Scheduled Referrals Name Type Priority Associated Diagnoses Order Schedule Radiation Oncology office visit (clinic) Outpatient Referral Routine Once for 1 Occurrences starting 08/02/2023 until 08/02/2023 General Surgery - General consult (clinic) Outpatient Referral Routine Lump In The Right Breast Lower Inner Quadrant Expected: 08/09/2023 (Approximate), Expires: 11/02/2024 documented as of this encounter Visit Diagnoses Diagnosis Lump In Axillary Tail Of The Right Breast- Primary Lump In The Right Breast Lower Inner Quadrant documented in this encounter
--- OUTSIDE RECORDS SUMMARY | 2023-11-08 13:24 | XMS_ITS | Encounter Summary ---
Author Name Unknown Organization [facility] Address [address] [place] [address] Care Team Providers Care Manager Distribution Name Role Phone Unavailable Primary Care Provider Unavailabl e Reason for Referral * Outpatient (Routine) - Closed Specialty Diagnoses / Procedures Referred By Funmiac t Referred To Contact Radiation Oncology Geno Becerril P.A.-C., M.S. [address] [place] [phone] [facility] Region Referral ID Status Reason Start Date Expiration Date Visits Re quested Visits Authorized [id number] Closed 12/05/2022 12/04/2025 1 1 Scheduling Instructions Mammogram prior at [facility]. Please get report and images. * Outpatient (Routine) - Closed Specialty Diagnoses / Procedures Referred By Contac t Referred To Contact Radiation Oncology Alena Gutierrez M.D. 200 [place] [address] [facility] Region Referral ID Status Reason Start Date Expiration Date Visits Re quested Visits Authorized [id number] Closed 06/06/2022 06/05/2025 1 1 Reason for Visit * Outpatient (Routine) - Closed Specialty Diagnoses / Procedures Referred By Contac t Referred To Contact Radiation Oncology Alena Gutierrez M.D. 200 [place] [address] [facility] Region Referral ID Status Reason Start Date Expiration Date Visits Re quested Visits Authorized [id number] Closed 06/06/2022 06/05/2025 1 1 Encounter Details Date Type Department Care Team (Latest Contact Info) Description 12/05/2022 2:18 PM CDT - 12/05/2022 5:25 PM CDT Hospital Encounter Department of Radiation Oncology in [place], [place] [address] [place] [phone] Alena Gutierrez M.D. 200 [place] [address] Intraductal Carcinoma In Situ Of Left Breast (Primary Dx) Social History Tobacco Use Types Packs/Day Years [...] Sign Reading Time Taken Comments Blood Pressure - - Pulse - - Temperature 36.4 ??C (97.5 ??F) 12/05/2022 2:24 PM CD T Respiratory Rate - - Oxygen Saturation - - Inhaled Oxygen Concentration - - Weight - - Height - - Body Mass Index - - documented in this encounter Medications at Time of Discharge Medication Sig Dispensed Refills Start Date End Date calcium crb,gik-N4-mvd64-genis 300-200-13.5 mg-unit-mg tablet Take 1 tablet by [...] mouth. Taking 15 mg qd 0 09/22/2021 meloxicam (MOBIC) 15 mg tablet 0 03/22/2019 miscellaneous medical supply misc Autotitration cpap 4-20cm of H2O, with accessories [...] warfarin (COUMADIN) 2.5 mg tablet 0 03/19/2019 documented as of this encounter Progress Notes * Geno Becerril P.A.-C., M.S. - 12/05/2022 2:30 PM CDT SUBJECTIVE DIAGNOSIS 1. Intraductal Carcinoma In Situ Of Left Breast SUPERVISED BY: Alena Gutierrez M.D. HISTORY OF PRESENT ILLNESS Mrs. 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 She received 4005 cGy in 15 fractions to the left breast which she completed on July 09, 2019. Her oncologic history is as follows: 1. [...] (DCIS) pN0 (sn). 8. June 01, 2019: [employer] diagnostic testing result demonstrated one pathogenic variant [...] 01, 2022: Mammogram is negative for malignancy. INTERVAL HISTORY The patient was seen and examined today with Dr. Gutierrez. The patient reports doing well overall. She reports performing self breast exams. She denies any palpable lumps or bumps in the breasts. She denies any nipple discharge or bleeding. She denies left arm range of motion limitations or swelling. She has stable shortness of breath. She denies cough. She reports that her activity is limited due to her left knee. REVIEW OF SYSTEMS Review of systems was negative except as documented above. OBJECTIVE Temp 36.4 ??C PHYSICAL EXAM GENERAL: Alert and oriented in no apparent distress. ASSESSMENT / PLAN #1 Left breast DCIS, pTis pN0 (sn) cM0, ER positive, s/p lumpectomy and SLNBx and adjuvant radiation therapy, June 2019 The patient was seen today for follow-up of DCIS. She did not report any breast concerns today. Physical examination was performed by Dr. Gutierrez, please see her attestation for details. We will orderfor her annual mammogram to be done at [facility] in May 2023. I will also order fora return visit to be scheduled here after the imaging. The patient will contact us sooner with quest ions or concerns. She verbally expressed her understanding of the plan. EDUCATION Ready to learn, no apparent learning barriers were identified; learning preferences include listening. Explained diagnosis and treatment plan; patient expressed understanding of the content. I personally spent 25 minutes in care of the patient today. Time includes both non face to face andface to face patient care. Signed by: Geno Becerril P.A.-C., M.S. 12/05/2022 3:01 PM CDT [facility] [address] [place] [address] Associated attestation - Alena Gutierrez M.D. - 12/05/2022 5:24 PM CDT I saw and evaluated the patient and participated in the nelson portions of the service. I reviewed thedocumentation of Ms. Geno Becerril PA-C, MS and agree with the findings and plan. On exam, she appearswell. No lymphadenopathy in the cervical, supra/infraclavicular or axillary regions. Breast exam was performed. She has large breasts without lumps, masses, skin changes or nipple discharge. Heart- Regular rate and rhythm. Lungs - No dullness to percussion and clear to auscultation. She will returnin 6 months with her mammogram. Her questions were answered; she was comfortable with this plan. Alena Gutierrez M.D., 12/05/2022 documented in this encounter Plan of Treatment Scheduled Referrals Name Type Priority Associated Diagnoses Order Schedule Radiation Oncology office visit (clinic) Outpatient Referral Routine Once for 1 Occurrences starting 12/05/2022 until 12/05/2022 Radiation Oncology office visit (clinic) Outpatient Referral Routine Expected: (Approximate), Expires: 12/06/2023 documented as of this encounter Visit Diagnoses Diagnosis Intraductal Carcinoma In Situ Of Left Breast- Primary documented in this encounter
--- OUTSIDE RECORDS SUMMARY | 2023-11-08 13:24 | XMS_ITS | Encounter Summary ---
Author Name Unknown Organization [facility] Address [address] [place] [address] Care Team Providers Care Forming Tube Selector Name Role Phone Unavailable Primary Care Provider Unavailabl e Encounter Details Date Type Department Care Team (Late st Contact Info) Description 03/22/2023 Clinical Communication Department of Radiation Oncology in [place], [place] [address] [place] [address] Alena Gutierrez M.D. [address] [place] [address] Social History Tobacco Use Types Packs/Day Years [...]
--- OUTSIDE RECORDS SUMMARY | 2023-11-08 13:24 | XMS_ITS ---
Author Name Unknown Organization [facility] Address [address] [place] [address] Care Team Providers Care Landing Signal Officer Name Role Phone Unavailable Primary Care Provider Unavailabl e Active Problems Problem Noted Date Diagnosed Date Intraductal Carcinoma In Situ Of Left Breast Cancer Staging:Clinical: Unsigned Pathologic stage from 06/14/2019:Stage 0(pTis (DCIS), pN0(sn), cM0, G3, ER+, [place]: Not Assessed, HER2: Not Assessed) - Signed by Alena Gutierrez M.D. on 06/14/2019 Current Oncology Plans No current plan information found. Past Plans No past plan information found. Radiation Treatments * Plan Last Treated On Elapsed Days Fractions Treated Prescribed Fraction Dose Prescribed Total Dose F1_Lt Breast 07/09/2019 20 15 of 15 267 cGy 4,005 cGy Reference Point Last Treated On Elapsed Days Session Dose Total Dose [id number] 07/09/2019 20 267 cGy 4,005 cGy
--- OUTSIDE RECORDS SUMMARY | 2023-11-08 13:24 | XMS_ITS | Continuity of Care Document ---
Author Name Unknown Organization [facility] Address [address] [place] [address] Phone Care Team Providers Care Commercial Account Manager Name Role Phone Lucy Leung MD Unavailable Unavailable Medications Medication Instructions Dosage Effective Dates (start - stop) Status Comments DURLAZA (unknown strength) Not Available - Active CALCIUM (unknown strength) Not Available - Active CONTRAVE (unknown strength) Not Available - Active NEURONTIN (unknown strength) Not Available - Active TIROSINT (unknown strength) Not Available - Active MELOXICAM (unknown strength) Not Available - Active ZANTAC (unknown strength) Not Available - Active FISH OIL (unknown strength) Not Available - Active MELATONIN (unknown strength) Not Available - Active Procedures Procedure Date Office/Outpatient Visit,[facility] 2016 Advance Directives Directive Yes / No Effective Date File Name No Information Encounters Encounter Description Practice Location Reason(s) For Visit Diagnoses Date Provider Providers Copied on Encounter Office/Outpati ent Visit,[facility] , [address], [place], [place], [id number], [place] tel:[phone] [facility] Other spondylosis , lumbar region Madhu Ayala. [facility], [address], [place], [place], [id number], [place]. tel:[phone] Referring Provider: Peter Molina, [place] [facility] [address], [place], [address]. tel:[phone] Family History Family Member Type Diagnosis Age At Onset Problem (finding) Problem (finding) Payers Payer name Insurance type Covered constitution party ID Alberto chappell(ivy) [facility] [id number] Medicare Igor ZAMORA [id number] 1 Social History Type Description Quantity Date Captured Comments Alcohol Use Details Caffeine Use Details Tobacco Use Status Never smoked tobacco 2016 Smoking Status Never smoker Non-Smoking Tobacco Use Details : No Details Available : No Details Available Sex Female Vital Signs Date / Time: Height Weight BMI Pulse Rate Blood Pressure Temperature Respiratory Rate Body Surface Area Head Circumference Head Circ. Percentile Wt./Tre. Percentile BMI percentile Pulse Ox Inhaled Ox 2:55 PM 63.00 in 111.130 kg (245.00 lbs) 43.4 0 kg/m eter (2) Chief Complaint And Reason For Visit No Information Reason For Referral Reason For Referral No Information History Of Present Illness Encounter Date Complaint History Of Prese nt Illness No Information Functional Status Date Functional Assessmen t No Information Instructions Date Instruction Additional Infor mation Weight Management Education Rela jose to Overweight Weight management: I nstructed to return to General Practitioner timeframe: 1 Month. Related to Overweight Assessments Type Assessment Date assessment Other spondylosis, lumbar region Patient Care Teams Name Effective Dates (start - stop) Status Members No Information
--- OUTSIDE RECORDS SUMMARY | 2023-11-08 13:24 | XMS_ITS | Clinical Summary ---
Author Name Unknown Organization [facility] Address [address] [place] [address] Care Team Providers Care Modular Set Crew Member Name Role Phone Unavailable Primary Care Provider Unavailabl e Source Comments Patient records contain information from all sites at [facility]. For routine questions regarding patient records, call [phone] during business hours, M-F 8:00 AM - 5:00 PM Central Time. Record requests for emergency care only can be directed to [phone] at any time.[facility] Allergies Active Allergy Reactions Criticality Noted Date Comments Amoxicillin Hives (Reselect Reaction),Rash High 07/08/2005 Thimerosal Other (see comments) Medium 01/28/2008 Pt. states that when she used eye drops with this preservtive in, it felt like there was gravel in her eyes. Medications Medication Sig Dispensed Refills Start Date End Date Status calcium crb,szc-M1-smw08-ge nis 300-200-13.5 mg-unit-mg tablet Take 1 tablet by mouth. 0 Active flecainide (TAMBOCOR) 150 mg tablet Take 150 mg by mouth. 0 03/22/2019 Act arianne furosemide (LASIX) 40 mg tablet Take 40 mg by mouth. 0 09/07/2018 Ac tive levothyroxine (SYNTHROID, LEVOTHROID) 125 mcg tablet Take 125 mcg by mouth. 0 07/17/2018 Active miscellaneous medical supply misc Autotitration cpap 4-20cm of H2O, with accessories dx780.57 0 02/18/2008 Active multivitamin capsule Take by mouth. 0 Active meloxicam (MOBIC) 15 mg tablet 0 03/22/2019 Active omeprazole (PriLOSEC) [address] capsule Take 20 mg by mouth. 0 11/08/2018 Acti ve potassium chloride (KLOR-CON M) 10 mEq ER tablet Take 10 mEq by mouth. 0 09/07/2018 Act arianne warfarin (COUMADIN) 2.5 mg tablet 0 03/19/2019 Active cholecalciferol (VITAMIN D3) 50 mcg (2,000 Unit) tablet Take 2,000 Units by mouth daily. 0 Active levothyroxine (SYNTHROID, LEVOTHROID) 112 mcg tablet 0 07/15/2019 Active sertraline (ZOLOFT) 50 mg tablet 0 04/23/2020 Active oxybutynin (DITROPAN) 5 mg tablet Take 5 mg by mouth 2 (two) times a day. 0 Active lisinopriL (PRINIVIL,ZESTRIL) 5 mg tablet Take 5 mg by mouth. Taking 15 mg qd 0 09/22/2021 Active losartan (COZAAR) 50 mg tablet Take 50 mg by mouth daily. 0 Active Active Problems Problem Noted Date Diagnosed Date Intraductal Carcinoma In Situ Of Left Breast Cancer Staging:Clinical: Unsigned Pathologic stage from 06/14/2019:Stage 0(pTis (DCIS), pN0(sn), cM0, G3, ER+, [place]: Not Assessed, HER2: Not Assessed) - Signed by Alena Gutierrez M.D. on 06/14/2019 Social History Tobacco Use Types Packs/Day Years [...] on file Sexual Orientation Not on file Last Filed Vital Signs Vital Sign Reading Time Taken Comments Blood Pressure 126/88 08/02/2023 10:54 AM EVALUATOR TRANSFER STUDENTS Pulse 69 10/03/2019 3:47 PM EVALUATOR TRANSFER STUDENTS Temperature 36.4 ??C (97.5 ??F) 12/05/2022 2:24 PM CD T Respiratory Rate 20 07/22/2019 4:15 PM EVALUATOR TRANSFER STUDENTS Oxygen Saturation 100% 07/22/2019 4:15 PM EVALUATOR TRANSFER STUDENTS Inhaled Oxygen Concentration - - Weight 135 kg (296 lb 11.8 oz) 06/14/2019 9:51 A M CDT Height 158 cm (5' 2.21) 06/14/2019 9:51 AM CDT Body Mass Index 53.92 06/14/2019 9:51 AM CDT Plan of Treatment Health Maintenance Due Date Last Done Comments Bone Density Scan (Osteoporo sis Screen) 1951 CT Colonography 1950 Cologuard 1950 Colonoscopy 1950 Colorectal Cancer Screening 1950 FIT 1950 Fasting Glucose for Diabetes Screening 1950 Hepatitis C Screening 1950 Sodium Level 1951 Thyroid Stimulating Hormone (TSH) test for thyroid function 1950 Creatinine Level (Kidney Fun ction Test) 09/03/2019 09/03/2018 Potassium Level 09/03/2019 09/03/2018 COVID-19 Vaccine (5 - 2022-2 4 season) 2023 01/21/2022, 07/23/2021, 12/29/2020, Additional history exists Influenza Vaccine (#1) 2023 10/05/2022, 2018 Depression Screening (Annual PHQ-2) 09/18/2023 Fall Risk Screen (Annual) 09/18/2023 Zoster Vaccines (2 of 2) 12/05/2023 10/10/2023 Mammogram 06/06/2024 06/06/2023, 05/19, 05/25/2021, Additional history exists DTaP,Tdap,and Td Vaccines (3 - Td or Tdap) 04/12/2029 04/12/2019, 01/13/2009 Pneumococcal vaccine (65+ years) Completed 10/05/19 23 Procedures Procedure Name Priority Date/Time Associated Diagnosis Comments OUTSIDE US BREAST Routine 08/11/2023 9:1 0 AM EVALUATOR TRANSFER STUDENTS from Last 3 Months Results * US breast RT limited-Outside US Breast (08/11/2023 9:10 AM EVALUATOR TRANSFER STUDENTS) Narrative IIMS - 08/11/2023 2:03 PM EVALUATOR TRANSFER STUDENTS This order has been created and auto-finalized to support the import of outside images. If available, original interpretation can be found on the Media Tab in Chart Review, in Document Viewer, or as an image in QREADS. If a re-interpretation or overread is required please follow defined workflow. ?? Provider Not In System IMG BI PROCEDURES [facility] NA from Last 3 Months
--- OUTSIDE RECORDS SUMMARY | 2023-11-08 13:24 | XMS_ITS ---
Author Name Unknown Organization [facility] Address [address] [place] [address] Care Team Providers Care Driver Sales Name Role Phone Unavailable Unavailable Unavailable Surgery Details Not on file Complications Check Surgery Details section. Procedure Estimated Blood Loss Check Surgery Details section. Procedure Findings Check Surgery Details section. Procedure Specimens Taken Check Surgery Details section.
--- OUTSIDE RECORDS SUMMARY | 2023-11-08 13:24 | XMS_ITS | Encounter Summary ---
Author Name Unknown Organization [facility] Address [address] [place] [address] Care Team Providers Care Sales Project Engineer Name Role Phone Unavailable Primary Care Provider Unavailabl e Encounter Details Date Type Department Care Team (Late st Contact Info) Description 08/07/2023 Orders Only Department of Radiation Oncology in [place], [place] [address] [place] [phone] Alena Gutierrez M.D. [address] [place] [address] Social History Tobacco Use Types Packs/Day Years [...]
--- OUTSIDE RECORDS SUMMARY | 2023-11-08 13:24 | XMS_ITS | Encounter Summary ---
Author Name Unknown Organization [facility] Address [address] [place] [address] Care Team Providers Care Lamination Spinner Name Role Phone Unavailable Primary Care Provider Unavailabl e Reason for Referral * Outpatient (Routine) - Closed Specialty Diagnoses / Procedures Referred By Contac t Referred To Contact Radiation Oncology Alena Gutierrez M.D. [address] [place] [phone] [facility] Referral ID Status Reason Start Date Expiration Date Visits Re quested Visits Authorized [id number] Closed 06/09/2023 06/08/2026 1 1 * Outpatient (Routine) - Closed Specialty Diagnoses / Procedures Referred By Contac t Referred To Contact Radiation Oncology Geno Becerril P.A.-C., M.S. [address] [place] [phone] [facility] Region Referral ID Status Reason Start Date Expiration Date Visits Re quested Visits Authorized [id number] Closed 12/05/2022 12/04/2025 1 1 Scheduling Instructions Mammogram prior at [facility]. Please get report and images. Reason for Visit * Outpatient (Routine) - Closed Specialty Diagnoses / Procedures Referred By Contac t Referred To Contact Radiation Oncology Geno eBcerril P.A.-C., M.S. [address] [place] [address] [facility] Region Referral ID Status Reason Start Date Expiration Date Visits Re quested Visits Authorized [id number] Closed 12/05/2022 12/04/2025 1 1 Encounter Details Date Type Department Care Team (Latest Contact Info) Description 06/09/2023 10:32 AM CDT - 06/09/2023 12:29 PM CDT Hospital Encounter Department of Radiation Oncology in [place], [place] [address] [place] [phone] Alena Gutierrez M.D. [address] [place] [phone] Intraductal Carcinoma In Situ Of Left Breast [...] on file documented as of this encounter Medications at Time of Discharge Medication Sig Dispensed Refills Start Date End Date calcium crb,rug-W6-hdg39-genis 300-200-13.5 mg-unit-mg tablet Take 1 tablet by [...] Progress Notes * Alena Gutierrez M.D. - 06/09/2023 11:00 AM CDT RADIATION ONCOLOGY FOLLOW-UP NOTE SUBJECTIVE REQUESTING PROVIDER [...] being seen today for a focused follow-up visit. Her oncologic history is as follows: 1. [...] (DCIS) pN0 (sn). 8. June 01, 2019: [employer] diagnostic testing result demonstrated one pathogenic variant [...] last saw Mrs. Claribel Juarez she reports intentionally losing 40 lbs since January as she is hoping for a knee replacement surgery. She has no breast concerns. She denies lumps, masses, nipple discharge or concerns. OBJECTIVE There were no vitals taken for this visit except for her temperature which was 97.1. General: Mrs. Claribel Juarez is a well-developed, well-nourished woman. she is seated in the examination room in no acute distress. ECO - asymptomatic. She defers breast exam when she has had her mammogram. DIAGNOSTICS: I have reviewed the available imaging, operative and pathology reports as described above and reviewed in the EMR. ASSESSMENT / PLAN #1 Left breast DCIS, pTis pN0 (sn) cM0, ER positive, s/p lumpectomy and SLNBx and adjuvant radiation therapy, June 2019 She deferred a clinical exam today given her negative breast mammogram. She is extremely uncomfortable with clinical exams. We will see Mrs. Claribel Juarez in follow-up visit in 6 months with no imaging preceding. She knows that I will do an exam at our next visit. Mrs. Claribel Juarez knows to contact us at any point should any questions or concerns arise. Mrs. Claribel Juarez knows to contact us at any point should any questions or concerns arise. EDUCATION Ready to learn, no apparent learning barriers were identified; learning preferences include listening. Explained diagnosis and treatment plan; patient expressed understanding of the content. I personally spent 15 minutes in care of the patient today. Time includes both non face to face andface to face patient care. Signed by: Alena Gutierrez M.D. 06/09/2023 12:29 PM CD[address] Radiation Oncology [facility] [address] [place] [address] documented in this encounter Plan of Treatment Scheduled Referrals Name Type Priority Associated Diagnoses Order Schedule Radiation Oncology office visit (clinic) Outpatient Referral Routine Once for 1 Occurrences starting 06/09/2023 until 06/09/2023 Radiation Oncology office visit (clinic) Outpatient Referral Routine Expected: (Approximate), Expires: 06/09/2024 documented as of this encounter Visit Diagnoses Diagnosis Intraductal Carcinoma In Situ Of Left Breast- Primary documented in this encounter
--- OUTSIDE RECORDS SUMMARY | 2023-11-08 13:24 | XMS_ITS | Referral Summary ---
Author Name Unknown Organization [facility] Address [address] [place] [address] Care Team Providers Care Lead Project Engineer Name Role Phone Unavailable Primary Care Provider Unavailabl e Source Comments Patient records contain information from all sites at [facility]. For routine questions regarding patient records, call [phone] during business hours, M-F 8:00 AM - 5:00 PM Central Time. Record requests for emergency care only can be directed to [phone] at any time.[facility] Allergies Active Allergy Reactions Criticality Noted Date Comments Amoxicillin Hives (Reselect Reaction),Rash High 07/08/2005 Thimerosal Other (see comments) Medium 01/28/2008 Pt. states that when she used eye drops with this preservtive in, it felt like there was gravel in her eyes. Medications Medication Sig Dispensed Refills Start Date End Date Status calcium crb,het-G7-byc28-ge nis 300-200-13.5 mg-unit-mg tablet Take 1 tablet [...] 06/14/2019:Stage 0(pTis (DCIS), pN0(sn), cM0, G3, ER+, [place]: Not Assessed, HER2: Not Assessed) - Signed [...] Comments Blood Pressure 126/88 08/02/2023 10:54 AM CHILD CAREGIVER Pulse 69 10/03/2019 3:47 PM CHILD CAREGIVER Temperature 36.4 ??C (97.5 ??F) 12/05/2022 2:24 PM CD T Respiratory Rate 20 07/22/2019 4:15 PM CHILD CAREGIVER Oxygen Saturation 100% 07/22/2019 4:15 PM CHILD CAREGIVER Inhaled Oxygen Concentration - - Weight 135 kg (296 lb 11.8 oz) 06/14/2019 9:51 A M CDT Height 158 cm (5' 2.21) 06/14/2019 9:51 AM CDT Body Mass Index 53.92 06/14/2019 9:51 AM CDT Plan of Treatment Not on file Procedures Procedure Name Priority Date/Time Associated Diagnosis Comments OUTSIDE US BREAST Routine 08/11/2023 9:1 0 AM CHILD CAREGIVER from Last 3 Months Results * US breast RT limited-Outside US Breast (08/11/2023 9:10 AM CHILD CAREGIVER) Narrative IIMS - 08/11/2023 2:03 PM CHILD CAREGIVER This order has been created and auto-finalized [...]
--- OUTSIDE RECORDS SUMMARY | 2023-11-08 13:24 | XMS_ITS | Continuity of Care Document ---
Author Name [facility] Organization [facility] Care Team Providers Care Patient Case Coordinator Name Role Phone [facility] Unavailable Unavailable Problems Combined list of problems from Department of Defense and [facility] facilities. It does not include entries that were removed or entered in error. Problem Status Onset Date Problem Type Date of Resolution Comments Source Diagnosis: ICD-10-CM Z65.9 Problem related to unspecified psychosocial circumstances Active Diagnosis [facility] Encounters Combined list of: 1) Encounters from Department of Veterans Affairs facilities going back up to thelast 18 months. 2) Encounters from the Department of [facility] facilities going back up to 280 months. Location Location Details Encounter Type Encounter Number Reason For Visit Attending Provider ADM Date DC Date Status Disposition Source [facility] Outpatient Encounter [id number] 10/20 [facility] Outpatient Encounter [id number] 10/21 [facility] PSYCH DIAGNOSTIC EVALUATION [id number] Diagnos is: ICD-10- CM Z65.9 Problem related to unspeci fied psychos ocial circums tances< br/> CONRAD HOWE SA 11/01 [facility] [place] Outpatient Encounter [id number] Edelmira REINOSO 11/17 [facility]
--- OUTSIDE RECORDS SUMMARY | 2023-11-08 13:24 | XMS_ITS | Encounter Summary ---
Author Name Unknown Organization [facility] Address [address] [place] [address] Care Team Providers Care Media Center Assistant Name Role Phone Unavailable Primary Care Provider Unavailabl e Encounter Details Date Type Department Care Team (Late st Contact Info) Description 06/08/2023 Clinical Communication Department of Radiation Oncology in [place], [place] [address] [place] [phone] Alena Gutierrez M.D. [address] [place] [phone] Social History Tobacco Use Types Packs/Day Years [...] encounter Miscellaneous Notes * Telephone Encounter - Fanny Santos APRN, C.N.P., D.N.P. - 06/08/2023 3:07 PM CDT I contacted the patient to inform her of her mammogram results which were negative for any evidenceof malignancy. She had already heard back from [facility] with those results and was very relieved. I reviewed with her our follow-up plans to see her tomorrow in clinic. She verbalized under standing and agreement to the plan. * Telephone Encounter - Art Mcgowan - 06/08/2023 2:38 PM CDT Patient Requests to Speak to a Specific Provider Reason for call: Upcoming Appointment: 06/09 @ 11:00AM Radiation treatment details: The patient has not received radiation treatment. Patient called asking to speak with Dr. Gutierrez as [facility] called and her answered and asked them to call back so they could speak to the patient. The patient stated that it has been some time since then and she is worried that it is about her mammogram results and that it is bad news. I reassured her that Dr. Gutierrez would go over her results with her tomorrow at her appointment and she sharedthat that is a long time to wait so she asked that Dr. Gutierrez call her with the results sooner if possible. # [phone]. documented in this encounter Plan of Treatment Not on file documented as of this encounter Visit Diagnoses Not on filedocumented in this encounter
--- NOTE | 2023-11-08 13:30 | XR_ITS ---
Patient: ARLYN TOVAR Facility:?[facility] Patient ID:?[id number] Site Patient ID:?[id number]. Site :?[id number] Study:?DEXA-Bone Density DEXA - SPINE/HIP/FOREARM-11/08/2023 2:00:31 PM Ordering Physician:OSCAR Final Report: DXA BONE MINERAL DENSITY STUDY Reason for exam: Osteopenia. Current height (inches): 65.5 Weight (lbs.): 140.0 Menopause age: 44 Ethnicity: White 1. Have you had a previous hip or vertebral fracture? No. 2. Have you had any fractures during your adult life which did not result from significant trauma (e.g., auto accident)? No. 3. Did either of your parents have a hip fracture? No. 4. Do you smoke? No. 5. Have you ever taken Glucocorticoids? No. 6. Do you have rheumatoid arthritis? No. 7. Do you have secondary osteoporosis? No. 8. Do you drink 3 or more alcoholic drinks per day? No. 9. Are you being treated for osteoporosis? Yes. 10. Have you ever taken any of the following medications: Actonel, Evista, Fosamax, Miacalcin, Reclast, Boniva, Forteo, HRT (i.e., estrogen/hormone therapy), Protelos, Prolia, Vitamin D, Calcium, other ? please specify. ANSWER: Yes; Fosamax, vitamin D, calcium. 11. Do you have any of the following medical conditions: Anorexia or bulimia, asthma or emphysema, end stage renal disease, hyperparathyroidism, any seizure disorders, cancer, inflammatory bowel diseases, hysterectomy, other ? please specify. ANSWER: No. 12. What was your maximum height (inches)? 66. 13. Do you perform weightbearing exercise regularly? No. 14. Do you regularly consume dairy products? Yes. 15. Do you drink caffeinated beverages? Yes. 16. At what age did your period start? 89. 17. Are you premenopausal? No. 18. How many full-term pregnancies have you had? 1. 19. Have you ever missed your period for more than 6 months in a row (not including or menopause)? No. TECHNIQUE: Bone mineral density study was performed using the GoPro. FINDINGS: The results of the study expressed as bone mineral density (BMD) are as follows: Lumbar Spine L1 to L3 BMD: 0.900 g/cm2. T-score: -1.1. Z-score: 1.4. Neck Left: BMD: 0.777 g/cm2. T-score: -0.7. Z-score: 1.5. Right: BMD: 0.757 g/cm2. T-score: -0.8. Z-score: 1.3. Total Left: BMD: 0.968 g/cm2. T-score: 0.2. Z-score: 2.1. Right: BMD: 0.979 g/cm2. T-score: 0.3. Z-score: 2.2. IMPRESSION: Osteopenia. YUDY TINEO M.D. Diagnostic Radiologist [email or web address] DSM/ilana D& Transcribed: 3:[address]/Dictated by: Yudy Tineo MD @ 11/10/2023 12:00:00 PM Signed by:?Yudy Tineo MD @11/10/2023 3:33:33 PM (Electronic Signature)
== END 2023-11-08 13:22 | disposition home or self-care (01) ==
LOC: RAD 13:22
PROVIDERS: PCP Family Medicine; Visit Provider Family Medicine
DX: M85.80 Other specified disorders of bone density and structure, unspecified site (principal); M85.88 Other specified disorders of bone density and structure, other site
CPT/HCPCS: 77080

== ENCOUNTER 2024-04-05 11:09 | Outpatient (CLI) | payer OTHER, SELFPAY ==
--- OUTSIDE RECORDS SUMMARY | 2024-04-08 16:00 | XMS_ITS | Clinical Summary ---
Author Organization [facility] Address [place], [place] [address] Care Team Providers Care Airframe Technical Officer Name Role Phone Ela Enrique MD Primary [...] meal. 0 11/08/2018 Active Calcium Cmb 2-D3-Min [id number] (CITRACAL + BONE DENSITY) 300-200-13.5 mg-unit-mg tab Take 1 tablet by mouth 2 times daily. 0 11/20/2019 Active meloxicam 15 mg tablet 09/30/2019 Active levothyroxine (SYNTHROID) 112 mcg tablet 07/15/2019 Active potassium chloride (K-DUR, KLOR-CON M10) 10 mEq tabletIndications: Encounter for monitoring diuretic therapy,Hypokalemi a,PAF (paroxysmal atrial fibrillation) (HC) Take 1 tablet by mouth on days that you take furosemide 90 tablet. 3 09/07/2020 Active flecainide (TAMBOCOR) 150 mg tabletIndications: PAF (paroxysmal atrial fibrillation) (HC),Encounter for monitoring diuretic therapy,Hypokalemi a Take 1 Tablet (150 mg) by mouth every 12 hours. 180 Tablet 07/14/2022 Active furosemide (LASIX) 40 mg tabletIndications: PAF (paroxysmal atrial fibrillation) (HC),Encounter for monitoring diuretic therapy,Hypokalemi a Take 1 tablet by mouth as needed for lower extremity edema 90 Tablet 07/14/2022 Active lisinopriL (PRINIVIL; ZESTRIL) 5 mg tabletIndications: HTN (hypertension) Take 1 Tablet (5 mg) by mouth once daily. 90 Tablet 07/14/2022 Active apixaban (ELIQUIS) 5 mg tabletIndications: Paroxysmal atrial fibrillation (HC) Take 1 Tablet (5 mg) by mouth two times daily. 180 Tablet 07/14/2022 Active Active Problems Problem Noted Date [...] Problem Noted Date Diagnosed Date Resolved Date salvage determiner (current) use of anticoagulants 02/02/2009 10/12/2009 Overview: [...] Outcome GA Total Labor Labor/2nd/3rd Weight Sex Type Anes PTL Kizzy A1 A5 Name Clin Para Para Last Filed Vital Signs Vital Sign Reading Time Taken Comments Blood Pressure 142/86 01/19/2022 9:47 AM CDT Pulse 72 01/19/2022 9:47 AM CDT Temperature 36.4 ??C (97.5 ??F) 09/03/2018 10:[address] Respiratory Rate 16 09/22/2021 1:16 PM EUCLID OPERATOR Oxygen Saturation 96% 01/19/2022 9:47 AM CDT Inhaled Oxygen Concentration - - Weight 126.1 kg (278 lb) 09/07/2018 2:18 PM EUCLID OPERATOR Height 162.6 cm (5' 4) 01/20/2021 12:51 PM CDT Body Mass Index 47.72 09/03/2018 7:00 AM EUCLID OPERATOR Plan of Treatment Health Maintenance Due Date [...] 07/23/2021, 12/29/2020, 12/08/2020 Influenza for age 65+ 05/19/2024 Tdap Completed 01/13/2009 Procedures Procedure Name Priority Date/Time Associated Diagnosis Comments SCAN-MAMMOGRAPHY REPORT 07/13/2010 12:00 AM CDT LIPID PANEL W REFLEX MEASURED LDL Routine 06/11/2010 3:12 PM CDT Impaired fasting glucose from Last 3 Months or Most Recently Relevant to Health Maintenance Results * SCAN-MAMMOGRAPHY REPORT (07/13/2010 12:00 AM CDT) Anatomical Region Laterality Modality Other Narrative Procedure Note Scanner - 07/13/2010 12:00 AM CDT Scanner OTHER * LIPID PANEL W REFLEX MEASURED LDL (06/11/2010 3:12 PM CDT) CHOLESTEROL,TOTAL 172 110 - 199 mg/dL [facility] TRIGLYCERIDES 101 <150 mg/dL [facility] HDL CHOLESTEROL 46 >40 mg/dL [facility] CHOL/HDL RATIO 3.74 <4.51 [facility] LDL CHOLESTEROL 106 <131 mg/dL [facility] PATIENT STATUS Fasting [facility] Blood specimen (specimen) BLOOD SPECIMEN / Unknown 06/11/2010 3:12 PM CDT 06/11/2010 3:11 PM CDT Terri Cruz CHEMISTRY [facility] [address] [place] [address] from Last 3 Months or Most Recently Relevant to Health Maintenance Advance Directives * Full Code (Latest Code Status on File) Date Activated Date Inactivated Comments 09/03/2018 7:27 AM 09/03/2018 5:02 PM Care Teams Airframe Technical Officer Relationship Specialty Start Date End Date Ela Enrique MD [address] [place] [address] PCP - General Family Practice 03/23/17
--- OUTSIDE RECORDS SUMMARY | 2024-04-08 16:00 | XMS_ITS | Clinical Summary ---
Author Organization [facility] Address [address] [place] [address] Care Team Providers Care Poultry Picker Name Role Phone Unavailable Primary Care Provider Unavailabl e Source Comments Patient records contain information from all sites at [facility]. For routine questions regarding patient records, call [phone] during business hours, M-F 8:00 AM - 5:00 PM Central Time. Record requests for emergency care only can be directed to [phone] at any time.[facility] Allergies Active Allergy Reactions Criticality Noted Date Comments Amoxicillin Hives (Reselect Reaction),Rash High 07/08/2005 Thimerosal Other (see comments) Medium 01/28/2008 Pt. states that when she used eye drops with this preservtive in, it felt like there was gravel in her eyes. Medications Medication Sig Dispensed Refills Start Date End Date Status calcium crb,[id number] nis 300-200-13.5 mg-unit-mg tablet Take 1 tablet by mouth. Active flecainide (TAMBOCOR) 150 mg tablet Take 150 mg by mouth. 03/22/2019 Act arianne furosemide (LASIX) 40 mg tablet Take 40 mg by mouth. 09/07/2018 Ac tive levothyroxine (SYNTHROID, LEVOTHROID) 125 mcg tablet Take 125 mcg by mouth. 07/17/2018 Active miscellaneous medical supply misc Autotitration cpap 4-20cm of H2O, with accessories dx780.57 02/18/2008 Active multivitamin capsule Take by mouth. Active meloxicam (MOBIC) 15 mg tablet 03/22/2019 Active omeprazole (PriLOSEC) [address] capsule Take 20 mg by mouth. 11/08/2018 Acti ve potassium chloride (KLOR-CON M) 10 mEq ER tablet Take 10 mEq by mouth. 09/07/2018 Act arianne warfarin (COUMADIN) 2.5 mg tablet 03/19/2019 Active cholecalciferol (VITAMIN D3) 50 mcg (2,000 Unit) tablet Take 2,000 Units by mouth daily. Active levothyroxine (SYNTHROID, LEVOTHROID) 112 mcg tablet 07/15/2019 Active sertraline (ZOLOFT) 50 mg tablet 04/23/2020 Active oxybutynin (DITROPAN) 5 mg tablet Take 5 mg by mouth 2 (two) times a day. Active lisinopriL (PRINIVIL,ZESTRIL) 5 mg tablet Take 5 mg by mouth. Taking 15 mg qd 09/22/2021 Active losartan (COZAAR) 50 mg tablet Take 50 mg by mouth daily. Active Active Problems Problem Noted Date Diagnosed Date Intraductal Carcinoma In Situ Of Left Breast Cancer Staging:Clinical: Unsigned Pathologic stage from 06/14/2019:Stage 0(pTis (DCIS), pN0(sn), cM0, G3, ER+, MA: Not Assessed, HER2: Not Assessed) - Signed by Alena Gutierrez M.D. on 06/14/2019 Encounters Date Type Department Care Team Description 04/08/2024 3:17 PM CDT Hospital Encounter Department of Radiation Oncology in [place], [place] [address] [place] [phone] Alena Gutierrez M.D. Intraductal Carcinoma In Situ Of Left Breast (Primary Dx) from Last 3 Months Social History Tobacco Use Types Packs/Day Years [...] Comments Blood Pressure 126/88 08/02/2023 10:54 AM PINION SORTER Pulse 69 10/03/2019 3:47 PM PINION SORTER Temperature 36.4 ??C (97.5 ??F) 12/05/2022 2:24 PM CD T Respiratory Rate 20 07/22/2019 4:15 PM PINION SORTER Oxygen Saturation 100% 07/22/2019 4:15 PM PINION SORTER Inhaled Oxygen Concentration - - Weight 135 [...] 09/03/2018 Potassium Level 09/03/2019 09/03/2018 COVID-19 Vaccine ( - 2022-2 4 season) 2023 01/21/2022, 07/23/2021, 12/29/2020, Additional history exists Depression Screening (Annual PHQ-2) 09/18/2023 Fall Risk Screen (Annual) 09/18/2023 Zoster Vaccines (2 of 2) 12/05/2023 10/10/2023 Mammogram 06/06/2024 06/06/2023, 05/19, 05/25/2021, Additional history exists Influenza Vaccine (#1) 2024 10/05/2022, 2018 DTaP,Tdap,and Td Vaccines (3 - Td or Tdap) 04/12/2029 04/12/2019, 01/13/2009 Pneumococcal vaccine (65+ years) Completed 10/05/19 23 Procedures Procedure Name Priority Date/Time Associated Diagnosis Comments OUTSIDE MG MAMMOGRAM Routine 06/06/2023 1:10 PM CDT from Last 3 Months or Most Recently Relevant to Health Maintenance Results * MM screening mammo BI-Outside Mammogram (06/06/2023 1:10 PM CDT) Narrative IIMS - 06/08/2023 8:45 AM CDT This order has been created and auto-finalized to support the import of outside images. If available, original interpretation can be found on the Media Tab in Chart Review, in Document Viewer, or as an image in QREADS. If a re-interpretation or overread is required please follow defined workflow. ?? Provider Not In System IMG BI PROCEDURES IIWA NA from Last 3 Months or Most Recently Relevant to Health Maintenance
--- OUTSIDE RECORDS SUMMARY | 2024-04-08 16:00 | XMS_ITS ---
Author Organization [facility] Address [address] [place] [address] Care Team Providers Care Perl Developer Name Role Phone Unavailable Primary Care Provider Unavailabl e Active Problems Problem Noted Date Diagnosed Date Intraductal Carcinoma In Situ Of Left Breast Cancer Staging:Clinical: Unsigned Pathologic stage from 06/14/2019:Stage 0(pTis (DCIS), pN0(sn), cM0, G3, ER+, [place]: Not Assessed, HER2: Not Assessed) - Signed [...] On Elapsed Days Session Dose Total Dose [id number] 07/09/2019 20 267 cGy 4,005 cGy
--- OUTSIDE RECORDS SUMMARY | 2024-04-08 16:00 | XMS_ITS | Encounter Summary ---
Author Organization [facility] Address [address] [place] [address] Care Team Providers Care Tab Cutting Machine Operator Name Role Phone Unavailable Primary Care Provider Unavailabl e Reason for Referral * Outpatient (Routine) - Closed Specialty Diagnoses / Procedures Referred By Contac t Referred To Contact Radiation Oncology Fanny Santos APRN, C.N.Lucy, D.N.PQuan [address] [place] [phone] Alena Gutierrez M.D. [address] [place] [phone] Referral ID Status Reason Start Date Expiration Date Visits Re quested Visits Authorized [id number] Closed 12/15/2023 06/15/2025 1 1 Reason for Visit * Outpatient (Routine) - Closed Specialty Diagnoses / Procedures Referred By Contac t Referred To Contact Radiation Oncology Fanny Santos APRN, C.N.Lucy, D.N.PQuan [address] [place] [phone] Alena Gutierrez M.D. [address] [place] [phone] Referral ID Status Reason Start Date Expiration Date Visits Re quested Visits Authorized [id number] Closed 12/15/2023 06/15/2025 1 1 Encounter Details Date Type Department Care Team (Latest Contact Info) Description 04/08/2024 3:17 PM CDT Hospital Encounter Department of Radiation Oncology in [place], [place] [address] [place] [address] Alena Gutierrez M.D. [address] [place] [address] Intraductal Carcinoma In Situ Of Left Breast [...] as of this encounter Plan of Treatment Scheduled Referrals Name Type Priority Associated Diagnoses Order Schedule Radiation Oncology office visit (clinic) Outpatient Referral Routine Once for 1 Occurrences starting 04/08/2024 until 04/08/2024 documented as of this encounter Visit Diagnoses Diagnosis Intraductal Carcinoma In Situ Of Left Breast- Primary documented in this encounter
--- OUTSIDE RECORDS SUMMARY | 2024-04-08 16:00 | XMS_ITS | Continuity of Care Document ---
Author Organization [facility] Address [address] [place] [address] Phone Care Team Providers Care Information Writer Name Role Phone Lucy Leung MD Unavailable [...] Available - Active Procedures Procedure Date Office/Outpatient Visit,[facility] 2016 Advance Directives Directive Yes / No Effective Date File Name No Information Encounters Encounter Description Practice Location Reason(s) For Visit Diagnoses Date Provider Providers Copied on Encounter Office/Outpati ent Visit,[facility], [facility] , [address], [place], [place], [id number], [place] tel:[phone] [facility] Other spondylosis , lumbar region Madhu Ayala. [facility], [address], [place], [place], [id number], [place]. tel:[phone] Referring Provider: Peter Molina, [employer] [facility], [place], [address]. tel:[phone] Family History Family Member Type Diagnosis Age At Onset Problem (finding) Problem (finding) Payers Payer name Insurance type Covered alliance party ID Alberto chappell(ivy) [facility] [id number] Medicare Allleann ZAMORA [id number] 1 Social History Type Description Quantity Date [...] 111.130 kg (245.00 lbs) 43.4 0 kg/m meche (2) Chief Complaint And Reason For Visit [...]
--- OUTSIDE RECORDS SUMMARY | 2024-04-08 16:00 | XMS_ITS | Encounter Summary ---
Author Organization [facility] Address [address] [place] [address] Care Team Providers Care Contract Administration Manager Name Role Phone Unavailable Primary Care Provider Unavailabl e Reason for Referral * Outpatient (Routine) - Closed Specialty Diagnoses / Procedures Referred By Darnell t Referred To Contact Radiation Oncology Fanny Santos APRN C.N.PQuan, D.N.PQuan [address] [place] [phone] Alena Valenzuela M.D. [address] [place] [phone] Referral ID Status Reason Start Date Expiration Date Visits Re quested Visits Authorized [id number] Closed 12/15/2023 06/15/2025 1 1 Encounter Details Date Type Department Care Team (Late st Contact Info) Description 12/14/2023 Clinical Communication Department of Radiation Oncology in [place], [place] [address] [place] [phone] Alena Valenzuela M.D. [address] [place] [phone] Social History Tobacco Use Types Packs/Day Years [...] encounter Miscellaneous Notes * Telephone Encounter - Susan Shepherd - 12/15/2023 10:07 AM CDT I called the patient to schedule a return visit with CAMDEN sometime the week of 12/24. The patient doesn't want to come in she said she's doing fine and feeling fine. I explained that f/u would be every 6 months with imaging yearly. She was wondering if we could push her next visit out to end of March as she is scheduled for labs, and to see her primary doctor, Dr. Enrique on 04/09. She would really appreciate if CAMDEN's visit and her pcp apts could coordinate. Its easier for her to remember. If okay I can edit the request to see CAMDEN to late March and I told the patient we would call her with that appointment. * Telephone Encounter - Minoo Sin - 12/14/2023 3:53 PM CDT Patient called stating that in may she was going to see Dr valenzuela back in november for a repeat mammogram and follow up visit but she found lumps in her breast and we moved the apt up to July. Patient called wondering if she is going to have a follow up with bianca and a repeat mammogram as she is supposed to have one every 6 months, that would put the imaging and follow p out to middle of january beginning of february. Let me know what you guys come up with. Thanks documented in this encounter Plan of Treatment Scheduled Referrals Name Type Priority Associated Diagnoses Orde r Schedule Radiation Oncology office visit (clinic) Outpatient Referral Routine Expected: 04/08/2024 (Approximate), Expires: 03/16/2025 documented as of this encounter Visit Diagnoses Not on filedocumented in this encounter
--- OUTSIDE RECORDS SUMMARY | 2024-04-08 16:00 | XMS_ITS ---
Author Organization [facility] Address [address] [place] [address] Care Team Providers Care Type Disk Quality Control Supervisor Name Role Phone Unavailable Unavailable Unavailable Surgery Details Not on file Complications Check Surgery Details section. Procedure Estimated Blood Loss Check Surgery Details section. Procedure Findings Check Surgery Details section. Procedure Specimens Taken Check Surgery Details section.
--- OUTSIDE RECORDS SUMMARY | 2024-04-08 16:00 | XMS_ITS | Referral Summary ---
Author Organization [facility] Address [address] [place] [address] Care Team Providers Care Pipe Coremaker Name Role Phone Unavailable Primary Care Provider Unavailabl e Source Comments Patient records contain information from all sites at [facility]. For routine questions regarding patient records, call [phone] during business hours, M-F 8:00 AM - 5:00 PM Central Time. Record requests for emergency care only can be directed to [phone] at any time.[facility] Encounters Date Type Department Care Team Description 04/08/2024 3:17 PM CDT Hospital Encounter Department of Radiation Oncology in [place], [place] [address] [place] [phone] Alena Gutierrez M.D. Intraductal Carcinoma In Situ Of Left Breast (Primary Dx) from Last 3 Months Allergies Active Allergy Reactions Criticality Noted Date Comments Amoxicillin Hives (Reselect Reaction),Rash High 07/08/2005 Thimerosal Other (see comments) Medium 01/28/2008 Pt. states that when she used eye drops with this preservtive in, it felt like there was gravel in her eyes. Medications Medication Sig Dispensed Refills Start Date End Date Status calcium crb,[id number]-[id number]-ge nis 300-200-13.5 mg-unit-mg tablet Take 1 tablet [...] 06/14/2019:Stage 0(pTis (DCIS), pN0(sn), cM0, G3, ER+, [place]: Not Assessed, HER2: Not Assessed) - Signed [...] Comments Blood Pressure 126/88 08/02/2023 10:54 AM MOTORBOAT MECHANIC Pulse 69 10/03/2019 3:47 PM MOTORBOAT MECHANIC Temperature 36.4 ??C (97.5 ??F) 12/05/2022 2:24 PM CD T Respiratory Rate 20 07/22/2019 4:15 PM MOTORBOAT MECHANIC Oxygen Saturation 100% 07/22/2019 4:15 PM MOTORBOAT MECHANIC Inhaled Oxygen Concentration - - Weight 135 [...] PROCEDURES IIMS NA from Last 3 Months or Most Recently Relevant to Health Maintenance
--- OUTSIDE RECORDS SUMMARY | 2024-04-08 16:00 | XMS_ITS | Continuity of Care Document ---
Author Name [employer] Organization [facility] Care Team Providers Care Farm Butcher Name Role Phone [employer] Unavailable Unavailable Problems Combined list of problems from Department of Defense and [facility] facilities. It does not include entries that were removed or entered in error. Problem Status Onset Date Problem Type Date of Resolution Comments Source Diagnosis: ICD-10-CM Z65.9 Problem related to unspecified psychosocial circumstances Active Diagnosis [facility] Encounters Combined list of: 1) Encounters from Department of Veterans Affairs facilities going back up to thelast 18 months. 2) Encounters from the Department of [facility] facilities going back up to 280 months. Location Location Details Encounter Type Encounter Number Reason For Visit Attending Provider ADM Date DC Date Status Disposition Source [facility] Outpatient Encounter [id number] 10/20 [facility] Outpatient Encounter [id number] 10/21 [facility] PSYCH DIAGNOSTIC EVALUATION [id number] Diagnos is: ICD-10- CM Z65.9 Problem related to unspeci fied psychos ocial circums tances< br/> CONRAD HOWE SA 11/01 [facility] Outpatient Encounter [id number] Edelmira REINOSO 11/17 [facility]
== END 2024-04-05 11:10 | disposition home or self-care (01) ==
LOC: NFLDREF 04-08 15:58
PROVIDERS: PCP Family Medicine; Referring Provider Family Medicine; Visit Provider Family Medicine
DX: I10 Essential (primary) hypertension (principal); Z79.1 Long term (current) use of non-steroidal anti-inflammatories (NSAID)
CPT/HCPCS: 80053

== ENCOUNTER 2024-08-22 10:44 | Outpatient (CLI) | payer OTHER, SELFPAY ==
--- NOTE | 2024-08-22 10:45 | CRLHL7_ITS ---
For Patients: As a result of the Century Cures Act, medical imaging exams and procedure reports are released immediately into your electronic medical record. You may view this report before your referring provider. If you have questions, please contact your health care provider. BILATERAL SCREENING MAMMOGRAM WITH COMPUTER-AIDED DETECTION AND TOMOSYNTHESIS TECHNIQUE: CC and MLO views were obtained. These mammographic images have been obtained using full-field digital technique. These mammographic images were interpreted with the benefit of computer-aided detection. Breast Tomosynthesis was used in this interpretation. COMPARISON FILM: 06/06/23, 06/01/22, 06/04/21. FINDINGS: There are scattered areas of fibroglandular density. IMPRESSION: There is no radiographic evidence for malignancy. ASSESSMENT: BI-RADS Category 1: Negative RECOMMENDATION: Routine screening mammogram in 1 year. A lay language report of this examination will be provided to the patient. Bhupinder Dia M.D. Diagnostic Radiologist [email or web address] SP/Dictated by: Bhupinder Dia MD @ 08/26/2024 12:54:00 PM (Electronically Signed)
--- OUTSIDE RECORDS SUMMARY | 2024-08-22 10:50 | XMS_ITS | Clinical Summary ---
Author Organization [facility] Address [place], [place] [address] Care Team Providers Care Railroad Brake Repairer Name Role Phone Ela Enrique MD Primary [...] meal. 0 11/08/2018 Active Calcium Cmb 2-D3-Min Big19-Qrn (CITRACAL + BONE DENSITY) 300-200-13.5 mg-unit-mg tab [...] unspecified 02/01/2010 Superficial thrombophlebitis of leg 02/02/2009 Overview (02/02/2009): Plan hematology evaluation when off coumadin Allergy to pollen 01/13/2009 Unspecified hypothyroidism 01/13/2009 ABNORMAL STRESS ECHOCARDIOGRAM 02/26/2008 MILD LEFT VENTRICULAR HYPERTROPHY 02/26/2008 SLEEP APNEA AHI-101 01/13/2008 02/18/2008 Knee joint replacement by other means 09/20/2007 Malignant neoplasm of ovary 11/29/2006 Osteoarthrosis, unspecified whether generalized or localized, unspecified site 11/29/2006 Overview (11/29/2006): right knee Morbid obesity with BMI of 45.0-49.9, adult Resolved Problems Problem Noted Date Diagnosed Date Resolved Date alf (current) use of anticoagulants 02/02/2009 10/12/2009 Overview (05/22/2009): INR goal range 2.0-3.0. Per dr beasley [...] 72 01/19/2022 9:47 AM CDT Temperature 36.4 C (97.5 F) 09/03/2018 10:20 AM NON DESTRUCTIVE EVALUATION TECHNICIAN Respiratory Rate 16 09/22/2021 1:16 PM NON DESTRUCTIVE EVALUATION TECHNICIAN Oxygen Saturation 96% 01/19/2022 9:47 AM CDT Inhaled Oxygen Concentration - - Weight 126.1 kg (278 lb) 09/07/2018 2:18 PM NON DESTRUCTIVE EVALUATION TECHNICIAN Height 162.6 cm (5' 4) 01/20/2021 12:51 PM CDT Body Mass Index 47.72 09/03/2018 7:00 AM NON DESTRUCTIVE EVALUATION TECHNICIAN Plan of Treatment Health Maintenance Due Date [...] 01/13/2009, 05/23/1997 COVID-19 vaccine series ( season) 2024 07/23/2021, 12/29/2020, 12/08/2020 Influenza for age 65+ [...] CDT) CHOLESTEROL,TOTAL 172 110 - 199 mg/dL [facility] TRIGLYCERIDES 101 <150 mg/dL [facility] HDL CHOLESTEROL 46 >40 mg/dL [facility] CHOL/HDL RATIO 3.74 <4.51 [facility] LDL CHOLESTEROL 106 <131 mg/dL [facility] PATIENT STATUS Fasting [facility] Blood specimen (specimen) BLOOD SPECIMEN / Unknown 06/11/2010 3:12 PM CDT 06/11/2010 3:11 PM CDT Terri Cruz CHEMISTRY [facility] [address] [place] [address] from Last 3 Months or Most Recently Relevant to Health Maintenance Advance Directives * Full Code (Latest Code Status on File) Date Activated Date Inactivated Comments 09/03/2018 7:27 AM 09/03/2018 5:02 PM Care Teams Railroad Brake Repairer Relationship Specialty Start Date End Date Ela Enrique MD [address] [place] [address] PCP - General Family Practice 03/23/17
--- OUTSIDE RECORDS SUMMARY | 2024-08-22 10:50 | XMS_ITS | Continuity of Care Document ---
Author Organization [facility] Address [address] [place] [address] Phone Care Team Providers Care Branch Director Name Role Phone Lucy Leung MD Unavailable [...] Available - Active Procedures Procedure Date Office/Outpatient Visit,[facility] 2016 Advance Directives Directive Yes / No Effective Date File Name No Information Encounters Encounter Description Practice Location Reason(s) For Visit Diagnoses Date Provider Providers Copied on Encounter Office/Outpati ent Visit,[facility] [facility] , [address], [place], [place], [id number], [place] tel:[phone] [facility] Other spondylosis , lumbar region Madhu Ayala. [facility], [address], [place], [place], [id number], [place]. tel:[phone] Referring Provider: Peter Molina, Yuepu Sifang [facility], [place], [address]. tel:[phone] Family History Family Member Type Diagnosis Age At Onset Problem (finding) Problem (finding) Payers Payer name Insurance type Covered libertarian ID Alberto chappell(ivy) [facility] [id number] Medicare Allleann ZAMORA [id number] 1 Social History Type Description Quantity Date [...]
--- OUTSIDE RECORDS SUMMARY | 2024-08-22 10:50 | XMS_ITS | Referral Summary ---
Author Organization [facility] Address [address] [place] [address] Care Team Providers Care Numerical Control Machine Machinist Name Role Phone Unavailable Primary Care Provider Unavailabl e Source Comments Patient records contain information from all sites at [facility]. For routine questions regarding patient records, call [phone] during business hours, M-F 8:00 AM - 5:00 PM Central Time. Record requests for emergency care only can be directed to [phone] at any time.[facility] Encounters Date Type Department Care Team Description 08/05/2024 Orders Only Department of Radiation Oncology in [address] [address] Alena Gutierrez M.D. 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 08/02/2024 Clinical Communication Department of Radiation Oncology in [address] [phone] Alena Gutierrez M.D. from Last 3 Months Allergies Active Allergy Reactions Criticality Noted Date Comments Amoxicillin Hives (Reselect Reaction),Rash High 07/08/2005 Thimerosal Other (see comments) Medium 01/28/2008 Pt. states that when she used eye drops with this preservtive in, it felt like there was gravel in her eyes. Medications calcium crb,cit-D3-min 34-raphael 300-200-13.5 mg-unit-mg tablet Take 1 tablet by mouth. Active flecainide (TAMBOCOR) 150 mg tablet Take 150 mg by mouth. 9 Active furosemide (LASIX) 40 mg tablet Take 40 mg by mouth. 8 Active levothyroxine (SYNTHROID, LEVOTHROID) 125 mcg tablet Take 125 mcg by mouth. 8 Active miscellaneous medical supply misc Autotitration cpap 4-20cm of H2O, with accessories dx780.57 8 Active multivitamin capsule Take by mouth. Activ e meloxicam (MOBIC) 15 mg tablet 9 Active omeprazole (PriLOSEC) [address] capsule Take 20 mg by mouth. 9 Active potassium chloride (KLOR-CON M) 10 mEq ER tablet Take 10 mEq by mouth. 8 Active warfarin (COUMADIN) 2.5 mg tablet 9 Active cholecalcifero l (VITAMIN D3) 50 mcg (2,000 Unit) tablet Take 2,000 Units by mouth daily. Active levothyroxine (SYNTHROID, LEVOTHROID) 112 mcg tablet 9 Active sertraline (ZOLOFT) 50 mg tablet 0 Active oxybutynin (DITROPAN) 5 mg tablet Take 5 mg by mouth 2 (two) times a day. Active lisinopriL (PRINIVIL,ZEST RIL) 5 mg tablet Take 5 mg by mouth. Taking 15 mg qd 2 Active losartan (COZAAR) 50 mg tablet Take 50 mg by mouth daily. Active Active Problems Problem Noted Date Diagnosed Date Intraductal Carcinoma In Situ Of Left Breast Cancer Staging:Clinical: Unsigned Pathologic stage from 06/14/2019:Stage 0(pTis (DCIS), pN0(sn), cM0, G3, ER+, [place]: Not Assessed, HER2: Not Assessed) - Signed by Alena Gutierrez M.D. on 06/14/2019 Social History Tobacco Use Types Packs/Day Years Used Date Smoking Tobacco: Never Assessed Nutrition Answer Date Recorded Nutrition: EVOO Fat Source 13 04/14 Nutrition: Servings of Fruits/Vegetables per Day Not on file 04/14/2020 Dental Answer Date Recorded Dental: Regular Dentist Unknown 11/17/19 21 Comments Unknown Sex and Gender Information Value Date Recorded Sex Assigned at Not on file Legal Sex Female 7:43 AM GOVERNMENT CONTRACTS MANAGER Gender Identity Not on file Sexual Orientation Not on file Last Filed Vital Signs Vital Sign Reading Time Taken Comments Blood Pressure 126/88 08/02/2023 10:54 AM GOVERNMENT CONTRACTS MANAGER Pulse 69 10/03/2019 3:47 PM GOVERNMENT CONTRACTS MANAGER Temperature 36.4 C (97.5 F) 12/05/2022 2:24 PM CDT Respiratory Rate 20 07/22/2019 4:15 PM GOVERNMENT CONTRACTS MANAGER Oxygen Saturation 100% 07/22/2019 4:15 PM GOVERNMENT CONTRACTS MANAGER Inhaled Oxygen Concentration - - Weight 135 [...] Document Viewer, or as an image in [employer]. If a re-interpretation or overread is required please follow defined workflow. us Provider Not In System IMG BI PROCEDURES Final R esult IIMS NA from Last 3 Months or Most Recently Relevant to Health Maintenance Insurance [facility]
--- OUTSIDE RECORDS SUMMARY | 2024-08-22 10:50 | XMS_ITS | Encounter Summary ---
Author Organization [facility] Address [address] [place] [address] Care Team Providers Care Greaser Operator Name Role Phone Unavailable Primary Care Provider Unavailabl e Encounter Details Date Type Department Care Team (Late st Contact Info) Description 08/05/2024 Clinical Communication Department of Radiation Oncology in [place], [place] [address] [place] [phone] Alena Gutierrez M.D. [address] [place] [phone] Social History Tobacco Use Types Packs/Day Years Used Date Smoking Tobacco: Never Assessed Nutrition Answer Date Recorded Nutrition: EVOO Fat Source 13 04/14 Nutrition: Servings of Fruits/Vegetables per Day Not on file 04/14/2020 Dental Answer Date Recorded Dental: Regular Dentist Unknown 11/17/19 21 Comments Unknown Sex and Gender Information Value Date Recorded Sex Assigned at Not on file Legal Sex Female 7:43 AM REAL PROPERTY APPRAISER Gender Identity Not on file Sexual Orientation Not on file documented as of this encounter Miscellaneous Notes * Telephone Encounter - Art Mcgowan - 08/05/2024 9:39 AM CST [facility] called over asking if the order for patients BI Breast Diagnostic Bilateral with Tomosynthesis due at the end of September 2024 is actually for diagnostic purposes or if it a screening. As is appears to them she is not currently having any issues where it would need to be diagnostic so they want to make sure. PROPERTY APPRAISER documented in this encounter Plan of Treatment Not on file documented as of this encounter Visit Diagnoses Not on filedocumented in this encounter
--- OUTSIDE RECORDS SUMMARY | 2024-08-22 10:50 | XMS_ITS | Encounter Summary ---
Author Organization [facility] Address [address] [place] [address] Care Team Providers Care Healthcare Analyst Name Role Phone Unavailable Primary Care Provider Unavailabl e Encounter Details Date Type Department Care Team (Late st Contact Info) Description 08/02/2024 Clinical Communication Department of Radiation Oncology in [place], [place] [address] [place] [phone] Alena Gutierrez M.D. [address] [place] [phone] Social History Tobacco Use Types Packs/Day Years Used Date Smoking Tobacco: Never Assessed Nutrition Answer Date Recorded Nutrition: EVOO Fat Source 13 04/14 Nutrition: Servings of Fruits/Vegetables per Day Not on file 04/14/2020 Dental Answer Date Recorded Dental: Regular Dentist Unknown 11/17/19 21 Comments Unknown Sex and Gender Information Value Date Recorded Sex Assigned at Not on file Legal Sex Female 7:43 AM EYELET ROW MARKER Gender Identity Not on file Sexual Orientation Not on file documented as of this encounter Plan of Treatment Not on file documented as of this encounter Visit Diagnoses Not on filedocumented in this encounter
--- OUTSIDE RECORDS SUMMARY | 2024-08-22 10:50 | XMS_ITS ---
Author Organization [facility] Address [address] [place] [address] Care Team Providers Care Chart Changer Name Role Phone Unavailable Unavailable Unavailable Surgery Details Not on file Complications Check Surgery Details section. Procedure Estimated Blood Loss Check Surgery Details section. Procedure Findings Check Surgery Details section. Procedure Specimens Taken Check Surgery Details section.
--- OUTSIDE RECORDS SUMMARY | 2024-08-22 10:50 | XMS_ITS ---
Author Organization [facility] Address [address] [place] [address] Care Team Providers Care Break Up Worker Name Role Phone Unavailable Primary Care Provider Unavailabl e Active Problems Problem Noted Date Diagnosed Date Intraductal Carcinoma In Situ Of Left Breast Cancer Staging:Clinical: Unsigned Pathologic stage from 06/14/2019:Stage 0(pTis (DCIS), pN0(sn), cM0, G3, ER+, [place]: Not Assessed, HER2: Not Assessed) - Signed [...] On Elapsed Days Session Dose Total Dose [id number] 07/09/2019 20 267 cGy 4,005 cGy
--- OUTSIDE RECORDS SUMMARY | 2024-08-22 10:50 | XMS_ITS | Encounter Summary ---
Author Organization [facility] Address [address] [place] [address] Care Team Providers Care Fructose Loader Name Role Phone Unavailable Primary Care Provider Unavailabl e Reason for Referral * Outpatient (Routine) - Authorized Specialty Diagnoses / Procedures Referred By Darnell roca Referred To Contact Diagnoses Intraductal Carcinoma In Situ Of Left Breast Procedures BI Breast Screening Bilateral with Tomosynthesis Alena Gutierrez M.D. [address] [place] [phone] Phone: tel: fax: [facility] Region Referral ID Status Reason Start Date Expiration Date V isits Requested Visits Authorized [id number] Authorized 08/05/2024 08/05/2025 1 1 IANCE SERVICE SUPERVISOR Encounter Details Date Type Department Care Team (Late st Contact Info) Description 08/05/2024 Orders Only Department of Radiation Oncology in [place], [place] [address] [place] [address] Alena Gutierrez M.D. [address] [place] [phone] Intraductal Carcinoma In Situ Of Left Breast [...] on file Legal Sex Female 7:43 AM APPLIANCE SERVICE SUPERVISOR Gender Identity Not on file Sexual Orientation Not on file documented as of this encounter Plan of Treatment Scheduled Orders Name Type Priority Associated Diagnoses Order Schedule BI Breast Screening Bilateral with Tomosynthesis Imaging RAD - Routine (most inpatients and all outpatients) Intraductal Carcinoma In Situ Of Left Breast Expected: 10/02/2024, Expires: 11/05/2025 documented as of this encounter Visit Diagnoses Diagnosis Intraductal Carcinoma In Situ Of Left Breast- Primary documented in this encounter
--- OUTSIDE RECORDS SUMMARY | 2024-08-22 10:50 | XMS_ITS | Clinical Summary ---
Author Organization [facility] Address [address] [place] [address] Care Team Providers Care Paint Roller Cover Machine Setter Name Role Phone Unavailable Primary Care Provider Unavailabl e Source Comments Patient records contain information from all sites at [facility]. For routine questions regarding patient records, call [phone] during business hours, M-F 8:00 AM - 5:00 PM Central Time. Record requests for emergency care only can be directed to [phone] at any time.[facility] Allergies Active Allergy Reactions Criticality Noted [...] 06/14/2019:Stage 0(pTis (DCIS), pN0(sn), cM0, G3, ER+, [place]: Not Assessed, HER2: Not Assessed) - Signed by Alena Gutierrez M.D. on 06/14/2019 Encounters Date Type Department Care Team Description 08/05/2024 Orders Only Department of Radiation Oncology in [address] [phone] Alena Gutierrez M.D. Intraductal Carcinoma In Situ Of Left Breast (Primary Dx) 08/05/2024 Clinical Communication Department of Radiation Oncology in [address] [phone] Alena Gutierrez M.D. 08/02/2024 Clinical Communication Department of Radiation Oncology in [address] [phone] Alena Gutierrez M.D. from Last 3 Months Social History Tobacco [...] on file Legal Sex Female 7:43 AM MACHINE DRILLER Gender Identity Not on file Sexual Orientation Not on file Last Filed Vital Signs Vital Sign Reading Time Taken Comments Blood Pressure 126/88 08/02/2023 10:54 AM MACHINE DRILLER Pulse 69 10/03/2019 3:47 PM MACHINE DRILLER Temperature 36.4 C (97.5 F) 12/05/2022 2:24 PM CDT Respiratory Rate 20 07/22/2019 4:15 PM MACHINE DRILLER Oxygen Saturation 100% 07/22/2019 4:15 PM MACHINE DRILLER Inhaled Oxygen Concentration - - Weight 135 kg (296 lb 11.8 oz) 06/14/2019 9:51 A M CDT Height 158 cm (5' 2.21) 06/14/2019 9:51 AM CDT Body Mass Index 53.92 06/14/2019 9:51 AM CDT Plan of Treatment Health Maintenance Due Date Last Done Comments Bone Density Scan (Osteoporosis Screen) 1951 CT Colonography 1950 Cologuard 1950 Colonoscopy 1950 Colorectal Cancer Screening 1950 FIT 1951 Fasting Glucose for Diabetes Screening 1950 Hepatitis C Screening 1950 Sodium Level 1950 Thyroid Stimulating Hormone (TSH) test for thyroid function 1951 RSV vaccine - (32-36 weeks) or 60+ years (1 - Risk 60-74 years 1-dose series) 2011 Creatinine Level (Kidney Function Test) 09/03/2019 09/03/2018 Potassium Level 09/03/2019 09/03/2018 Depression Screening (Annual PHQ-2) 09/18/2023 Fall Risk Screen (Annual) 09/18/2023 Zoster Vaccines (2 of 2) 12/05/2023 10/10/2023 COVID-19 Vaccine ( season) 2024 01/21/2022, 07/23/2021, 12/29/2020, Additional history exists Mammogram 06/06/2024 06/06/2023, 05/19, 05/25/2021, Additional history exists Influenza Vaccine (#1) 2024 10/05/2022, 2018 DTaP,Tdap,and Td Vaccines (3 - Td or Tdap) 04/12/2029 04/12/2019, 01/13/2009 Pneumococcal vaccine (65+ years) Completed 10/05/2022 IPV Vaccines Aged Out No longer eligi ble based on patient's age to complete this topic Procedures Procedure Name Priority Date/Time Associated Diagnosis [...] Recently Relevant to Health Maintenance Insurance [facility] [place] [facility] [id number] [employer]
== END 2024-08-22 10:45 | disposition home or self-care (01) ==
PROVIDERS: PCP Family Medicine; Visit Provider Radiology Radiation Oncology
DX: Z12.31 Encounter for screening mammogram for malignant neoplasm of breast (principal)
CPT/HCPCS: 77063; 77067

== ENCOUNTER 2024-12-17 11:05 | Outpatient (CLI) | payer MEDICARE, OTHER, SELFPAY | END 2024-12-17 11:06 | disposition home or self-care (01) | LOC: NFLDREF 12-18 07:37 | PROVIDERS: PCP Family Medicine; Referring Provider Family Medicine; Visit Provider Family Medicine | DX: E03.9 Hypothyroidism, unspecified (principal); E78.5 Hyperlipidemia, unspecified; M85.89 Other specified disorders of bone density and structure, multiple sites; I10 Essential (primary) hypertension; R73.01 Impaired fasting glucose; Z79.1 Long term (current) use of non-steroidal anti-inflammatories (NSAID) | CPT/HCPCS: 80053; 80061; 82306; 84443 ==

== ENCOUNTER 2025-01-14 10:44 | Outpatient (CLI) | payer MEDICARE, OTHER, SELFPAY ==
[2025-01-14 15:24] VITALS: BMI 51.7
== END 2025-01-14 10:45 | disposition home or self-care (01) ==
LOC: NUTRITION 10:44
PROVIDERS: PCP Family Medicine; Visit Provider Dietitian, Registered
DX: E66.9 Obesity, unspecified (principal); Z68.43 Body mass index [BMI] 50.0-59.9, adult; Z71.3 Dietary counseling and surveillance
CPT/HCPCS: G0463

== ENCOUNTER 2025-01-28 14:49 | Outpatient (CLI) | payer MEDICARE, OTHER, SELFPAY ==
[2025-01-28 13:09] VITALS: BMI 50.5
== END 2025-01-28 14:50 | disposition home or self-care (01) ==
LOC: NUTRITION 14:49
PROVIDERS: PCP Family Medicine; Visit Provider Dietitian, Registered
DX: E66.9 Obesity, unspecified (principal); Z68.43 Body mass index [BMI] 50.0-59.9, adult; Z71.3 Dietary counseling and surveillance
CPT/HCPCS: G0463

== ENCOUNTER 2025-02-11 05:45 | Outpatient (CLI) | payer MEDICARE, OTHER, SELFPAY ==
[2025-02-11 12:52] VITALS: BMI 49.4
== END 2025-02-11 05:46 | disposition home or self-care (01) ==
LOC: NUTRITION 05:45
PROVIDERS: PCP Family Medicine; Visit Provider Dietitian, Registered
DX: E66.9 Obesity, unspecified (principal); Z68.43 Body mass index [BMI] 50.0-59.9, adult; Z71.3 Dietary counseling and surveillance
CPT/HCPCS: G0463

== ENCOUNTER 2025-02-28 10:14 | Outpatient (CLI) | payer MEDICARE, OTHER, SELFPAY ==
[2025-02-28 11:51] VITALS: BMI 48.0
== END 2025-02-28 10:15 | disposition home or self-care (01) ==
LOC: NUTRITION 10:14
PROVIDERS: PCP Family Medicine; Visit Provider Dietitian, Registered
DX: E66.9 Obesity, unspecified (principal); Z68.43 Body mass index [BMI] 50.0-59.9, adult; Z71.3 Dietary counseling and surveillance
CPT/HCPCS: G0463

== ENCOUNTER 2025-03-14 08:04 | Outpatient (CLI) | payer MEDICARE, OTHER, SELFPAY ==
[2025-03-14 12:35] VITALS: BMI 47.2
--- OUTSIDE RECORDS SUMMARY | 2025-03-15 00:19 | XMS_ITS ---
Author Organization [facility] Address [address] [place] [address] Care Team Providers Care Crankshaft Straightener Name Role Phone Unavailable Primary Care Provider Unavailabl e Active Problems Problem Noted Date Diagnosed Date Intraductal Carcinoma In Situ Of Left Breast Cancer Staging:Clinical: Unsigned Pathologic stage from 06/14/2019:Stage 0(pTis (DCIS), pN0(sn), cM0, G3, ER+, [place]: Not Assessed, HER2: Not Assessed) - Signed by Alena Gutierrez M.D. on 06/14/2019 Current Treatment and Therapy Plans No current plan information found. Past Treatment and Therapy Plans No past plan information found. Radiation Treatments (No Episode) * Course 1x Lt Breast 06/19/2019 - 07/09/2019 Treatment Period Energy Fraction Dose Fractions Total Dose Plans Planned F1_Lt Breast 06/19/2019 - 07/09/2019 267 cGy 4,005 cGy Reference Points Delivered [id number] 06/19/2019 - 07/09/2019 4,005 cGy
--- OUTSIDE RECORDS SUMMARY | 2025-03-15 00:19 | XMS_ITS | Clinical Summary ---
Author Organization [facility] Address [address] [place] [address] Care Team Providers Care Mechanical Adjuster Name Role Phone Ela Enrique MD Primary Care Provider + Allergies Active Allergy Reactions Criticality Noted Date Comments Amoxicillin Hives 11/29/2006 Thimerosal Other - Describe In Comment Field 01/28/2008 Pt. states that when she used eye drops with this preservtive in, it felt like there was gravel in her eyes. Medications MULTIVITAMIN CAP daily 0 Act arianne CPAP Autotitration cpap 4-20cm of H2O, with accessories dx780.57 1 0 02/18/20 08 Active omeprazole (PRILOSEC) 20 mg Delayed-Release capsule Take 1 capsule by mouth once daily before a meal. 0 11/08/19 19 Active Calcium Cmb 2-D3-Min [id number] (CITRACAL + BONE DENSITY) 300-200-13.5 mg-unit-mg tab Take 1 tablet by mouth 2 times daily. 0 11/20/19 20 Active meloxicam 15 mg tablet 09/30/19 20 Active levothyroxine (SYNTHROID) 112 mcg tablet 07/15/20 19 Active potassium chloride (K-DUR, KLOR-CON M10) 10 mEq tabletIndication s:Encounter for monitoring diuretic therapy,Hypokale david,PAF (paroxysmal atrial fibrillation) (HC) Take 1 tablet by mouth on days that you take furosemide 90 tablet. 3 09/07/20 20 Active flecainide (TAMBOCOR) 150 mg tabletIndication s:PAF (paroxysmal atrial fibrillation) (HC),Encounter for monitoring diuretic therapy,Hypokale david Take 1 Tablet (150 mg) by mouth every 12 hours. 180 Tablet 07/14/20 22 Active furosemide (LASIX) 40 mg tabletIndication s:PAF (paroxysmal atrial fibrillation) (HC),Encounter for monitoring diuretic therapy,Hypokale david Take 1 tablet by mouth as needed for lower extremity edema 90 Tablet 07/14/20 22 Active lisinopriL (PRINIVIL; ZESTRIL) 5 mg tabletIndication s:HTN (hypertension) Take 1 Tablet (5 mg) by mouth once daily. 90 Tablet 07/14/20 22 Active apixaban (ELIQUIS) 5 mg tabletIndication s:Paroxysmal atrial fibrillation (HC) Take 1 Tablet (5 mg) by mouth two times daily. 180 Tablet 07/14/20 22 Active Active Problems Problem Noted Date Diagnosed [...] Problem Noted Date Diagnosed Date Resolved Date FDC (current) use of anticoagulants 02/02/2009 10/12/2009 Overview (05/22/2009): INR goal range 2.0-3.0. Per dr beasley evaluation, only needs coumadin for 6 months. Terri Cruz M.D. 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 file Not on file Not on file Obstetrics History Para Term [...] 36.4 C (97.5 F) 09/03/2018 10:20 AM SENIOR PROGRAM ANALYST Respiratory Rate 16 09/22/2021 1:16 PM SENIOR PROGRAM ANALYST Oxygen Saturation 96% 01/19/2022 9:47 AM CDT Inhaled Oxygen Concentration - - Weight 126.1 kg (278 lb) 09/07/2018 2:18 PM SENIOR PROGRAM ANALYST Height 162.6 cm (5' 4) 01/20/2021 12:51 PM CDT Body Mass Index 47.72 09/03/2018 7:00 AM SENIOR PROGRAM ANALYST Plan of Treatment Health Maintenance Due Date Last Done Comments Hepatitis C screening for ag e 18-79 11/24/1969 Colonoscopy through age 75 11/24/1996 Pneumococcal series for age 50+ (1 of 1 - PCV) 11/24/2001 Zoster (shingles) series for age 50+ (1 of 2) 11/24/2001 Mammogram for age 45-75 07/13/2011 07/13/20, 08/21/2008, 08/07/2007 Lipids for age 45-75 06/11/2015 06/11/2010, 05/12/2008 DEXA/DXA scan for age 65+ 11/24/2016 Medicare Wellness for age 65+ 11/24/2016 Depression screening for age 12+ 11/22/2017 11/22/2016 BMI (ht and wt on same day) for age 18+ 03/23/2018 03/23/2017, 02/02/2017, 12/22/2016 Tetanus booster 01/13/2019 01/13/2009, 05/23/1997 COVID-19 vaccine series ( season) 2024 07/23/2021, 12/29/2020, 12/08/2020 Influenza Vaccine (Season Ended) 2025 RSV vaccine for adults or (1 - 1-dose 75+ series) 11/24/2026 Tdap Completed 01/13/2009 Hepatitis B series for 19+ Aged Out N o longer eligible based on patient's age to complete this [...] Note Scanner - 07/13/2010 12:00 AM CDT us Scanner OTHER Final Result * LIPID PANEL W REFLEX MEASURED LDL (06/11/2010 3:12 PM CDT) CHOLESTEROL,TOTAL 172 110 - 199 mg/dL [facility] TRIGLYCERIDES 101 <150 mg/dL [facility] HDL CHOLESTEROL 46 >40 mg/dL [facility] CHOL/HDL RATIO 3.74 <4.51 [facility] LDL CHOLESTEROL 106 <131 mg/dL [facility] PATIENT STATUS Fasting [facility] Blood specimen (specimen) BLOOD SPECIMEN / Unknown 06/11/2010 3:12 PM CDT 06/11/2010 3:11 PM CDT Terri Cruz CHEMISTRY Final R esult [facility] [address] [place] [address] from Last 3 Months or Most Recently Relevant to Health Maintenance Insurance [place] HB ONLY MEDICARE PART B HB ONLY MEDICARE PART A [place] [address] [employer] CHOICE PPO MR Advance Directives * Full Code (Latest Code Status on File) Date Activated Date Inactivated Comments 09/03/2018 7:27 AM 09/03/2018 5:02 PM Care Teams Mechanical Adjuster Relationship Specialty Start Date End Date Ela Enrique MD [address] [place] [id number] PCP - General Family Practice 03/23/17
--- OUTSIDE RECORDS SUMMARY | 2025-03-15 00:19 | XMS_ITS | Clinical Summary ---
Author Organization [facility] Address [address] [place] [address] Care Team Providers Care Field Service Technician Name Role Phone Unavailable Primary Care Provider Unavailabl e Source Comments Patient records contain information from all sites at [facility]. For routine questions regarding patient records, call [phone] during business hours, M-F 8:00 AM - 5:00 PM Central Time. Record requests for emergency care only can be directed to [phone] at any time.[facility] Allergies Active Allergy Reactions Criticality Noted [...] 06/14/2019:Stage 0(pTis (DCIS), pN0(sn), cM0, G3, ER+, HI: Not Assessed, HER2: Not Assessed) - Signed by Alena Gutierrez M.D. on 06/14/2019 Social History Tobacco Use Types Packs/Day Years Used Date Smoking Tobacco: Never Assessed Comments Unknown Sex and Gender Information Value Date Recorded Sex Assigned at Not on file Legal Sex Female 7:43 AM HEART NURSE Gender Identity Not on file Sexual Orientation Not on file Last Filed Vital Signs Vital Sign Reading Time Taken Comments Blood Pressure 126/88 08/02/2023 10:54 AM HEART NURSE Pulse 69 10/03/2019 3:47 PM HEART NURSE Temperature 36.4 C (97.5 F) 12/05/2022 2:24 PM CDT Respiratory Rate 20 07/22/2019 4:15 PM HEART NURSE Oxygen Saturation 100% 07/22/2019 4:15 PM HEART NURSE Inhaled Oxygen Concentration - - Weight 135 kg (296 lb 11.8 oz) 06/14/2019 9:51 A M CDT Height 158 cm (5' 2.21) 06/14/2019 9:51 AM CDT Body Mass Index 53.92 06/14/2019 9:51 AM CDT Plan of Treatment Upcoming Encounters Date Type Department Care Team (Late st Contact Info) Description 04/23/2025 2:30 PM CDT Appointment Department of Radiation Oncology in [place], [place] [address] [place] [address] Alena Gutierrez M.D. [address] [place] [address] Health Maintenance Due Date Last Done Comments [...] Test) 09/03/2019 09/03/2018 Potassium Level 09/03/2019 09/03/2018 Zoster Vaccines (2 of 2) 12/05/2023 10/10/2023 COVID-19 Vaccine ( season) 2024 01/21/2022, 07/23/2021, 12/29/2020, Additional history exists Influenza Vaccine (#1) 2024 10/05/2022, 2018 Depression Screening (Annual PHQ-2) 09/18/2024 Fall Risk Screen (Annual) 09/18/2024 Mammogram 08/22/2025 08/22/2024, 05/19, 06/01/2022, Additional history exists DTaP,Tdap,and Td Vaccines (3 - Td or Tdap) 04/12/2029 04/12/2019, 01/13/2009 Pneumococcal vaccine (50+ years) Completed 10/05/2022 IPV Vaccines Aged Out No longer eligi ble based on patient's age to complete this topic Procedures Procedure Name Priority Date/Time Associated Diagnosis Comments OUTSIDE MG MAMMOGRAM Routine 08/22/2024 11:00 AM HEART NURSE from Last 3 Months or Most Recently Relevant to Health Maintenance Results * MM screening mammo BI-Outside Mammogram (08/22/2024 11:00 AM HEART NURSE) Narrative [facility] - 08/28/2024 2:41 PM HEART NURSE This order has been created and auto-finalized to support the import of outside images. If available, original interpretation can be found on the Media Tab in Chart Review, in Document Viewer, as an image in QREADS or as an Addendum. If a re-interpretation or overread is required please follow defined workflow. us Provider Not In System IMG BI PROCEDURES Final R esult [facility] NA from Last 3 Months or Most Recently Relevant to Health Maintenance Insurance [facility]
== END 2025-03-14 08:05 | disposition home or self-care (01) ==
LOC: NUTRITION 08:04
PROVIDERS: PCP Family Medicine; Visit Provider Dietitian, Registered
DX: E66.9 Obesity, unspecified (principal); Z68.43 Body mass index [BMI] 50.0-59.9, adult; Z71.3 Dietary counseling and surveillance
CPT/HCPCS: G0463

== ENCOUNTER 2025-04-01 06:31 | Outpatient (CLI) | payer MEDICARE, OTHER, SELFPAY ==
[2025-04-01 14:41] VITALS: BMI 46.0
== END 2025-04-01 06:32 | disposition home or self-care (01) ==
LOC: NUTRITION 06:32
PROVIDERS: PCP Family Medicine; Visit Provider Dietitian, Registered
DX: E66.9 Obesity, unspecified (principal); Z68.43 Body mass index [BMI] 50.0-59.9, adult; Z71.3 Dietary counseling and surveillance
CPT/HCPCS: G0463

== ENCOUNTER 2025-04-15 08:56 | Outpatient (CLI) | payer MEDICARE, OTHER, SELFPAY ==
[2025-04-15 11:16] VITALS: BMI 45.5
== END 2025-04-15 08:57 | disposition home or self-care (01) ==
LOC: NUTRITION 08:56
PROVIDERS: PCP Family Medicine; Visit Provider Dietitian, Registered
DX: E66.9 Obesity, unspecified (principal); Z68.43 Body mass index [BMI] 50.0-59.9, adult; Z71.3 Dietary counseling and surveillance
CPT/HCPCS: G0463

== ENCOUNTER 2025-04-29 06:32 | Outpatient (CLI) | payer MEDICARE, OTHER, SELFPAY ==
[2025-04-29 12:59] VITALS: BMI 44.1
== END 2025-04-29 06:33 | disposition home or self-care (01) ==
LOC: NUTRITION 06:33
PROVIDERS: PCP Family Medicine; Visit Provider Dietitian, Registered
DX: E66.9 Obesity, unspecified (principal); Z68.43 Body mass index [BMI] 50.0-59.9, adult; Z71.3 Dietary counseling and surveillance
CPT/HCPCS: G0463

== ENCOUNTER 2025-05-16 05:55 | Outpatient (CLI) | payer MEDICARE, OTHER, SELFPAY ==
[2025-05-16 13:41] VITALS: BMI 43.5
== END 2025-05-16 05:56 | disposition home or self-care (01) ==
LOC: NUTRITION 05:56
PROVIDERS: PCP Family Medicine; Visit Provider Dietitian, Registered
DX: E66.9 Obesity, unspecified (principal); Z68.43 Body mass index [BMI] 50.0-59.9, adult; Z71.3 Dietary counseling and surveillance
CPT/HCPCS: G0463

== ENCOUNTER 2025-06-03 06:20 | Outpatient (CLI) | payer MEDICARE, OTHER, SELFPAY ==
[2025-06-03 13:35] VITALS: BMI 42.3
== END 2025-06-03 06:21 | disposition home or self-care (01) ==
LOC: NUTRITION 06:21
PROVIDERS: PCP Family Medicine; Visit Provider Dietitian, Registered
DX: E66.9 Obesity, unspecified (principal); Z68.43 Body mass index [BMI] 50.0-59.9, adult; Z71.3 Dietary counseling and surveillance
CPT/HCPCS: G0463

== ENCOUNTER 2025-06-17 09:45 | Outpatient (CLI) | payer MEDICARE, OTHER, SELFPAY ==
[2025-06-17 13:41] VITALS: BMI 42.1
== END 2025-06-17 09:46 | disposition home or self-care (01) ==
LOC: NUTRITION 09:46
PROVIDERS: PCP Family Medicine; Visit Provider Dietitian, Registered
DX: E66.9 Obesity, unspecified (principal); Z68.43 Body mass index [BMI] 50.0-59.9, adult; Z71.3 Dietary counseling and surveillance
CPT/HCPCS: G0463

== ENCOUNTER 2025-06-23 10:46 | Outpatient (CLI) | payer MEDICARE, OTHER, SELFPAY | END 2025-06-23 10:47 | disposition home or self-care (01) | LOC: NFLDREF 07-06 04:19 | PROVIDERS: PCP Family Medicine; Referring Provider Family Medicine; Visit Provider Family Medicine | DX: I10 Essential (primary) hypertension (principal) | CPT/HCPCS: 80053 ==